=== PATIENT | female | born 1945 | race African-American/Black ===

== ENCOUNTER 2025-01-12 17:56 | Inpatient (IN) | payer OTHER ==
[~2025-01-12] VITALS: Ht 167.6 cm; Wt 102.0 kg
--- NOTE | 2025-01-12 18:14 | ECG ---
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
--- NOTE | 2025-01-12 18:30 | DVH ---
CHEST RADIOGRAPH Indication: sob Technique: Single frontal view of the chest was obtained Comparison: None FINDINGS: Lines and Tubes: None Lungs: No focal consolidation. Pleura: No effusion. No pneumothorax. Cardiomediastinal contours: Unremarkable Bones: No acute osseous abnormality. IMPRESSION: 1. No acute cardiopulmonary disease.
--- NOTE | 2025-01-12 18:37 | ED.PDOC ---
SOB-HPI HPI Comments HPI: Poor Historian. HPI: 79 year old female presents to the ED with chief complaint of SOB. Patient reports that she has been experiencing SOB for the past 2 months, worsened today enough for her to come to the ED. Patient relays that she also has been experiencing associated generalized weakness, off balance, fatigue, and p alpitations today. Patient states she was started on a new medication recently, but is not sure of the name. Patient denies any chest pain, fever, chills, cough, dizziness, headache, or N/V. Initial Vital Signs: Temp : 98.1F BP: 136/90 HR: 94 RR: 18 SpO2: 97% Past Medical History: HLD, DM, thyroid disease Past Surgical History: Thyroidectomy, Cholecystectomy, Hysterectomy Social History: Denies smoking, ETOH, or drug use. Medications: Glipizide, Atorvastatin, Levothyroxine, Lantus, Meloxicam Allergies: NKDA REVIEW OF SYSTEMS: CONSTITUTIONAL: Denies acute: fever, diaphoresis, chills, HEAD: Denies acute: headache, photophobia Eyes: Denies acute: Double vision, vision loss, eye pain, eye discharge. EARS: Denies acute: tinnitus, hearing loss, ear discharge, ear pain, THROAT: Denies acute: sore throat, swelling, difficulty swallowing , pain with swallowing, change in voice. NECK: Denies acute: neck pain, neck swelling, stiff neck. HEART: Denies acute : chest pain, LUNGS: Denies acute: wheezing, cough, hemoptysis ABDOMEN: Denies acute: abdominal pain, Nausea, Vomiting, diarrhea, melena , hematemesis, hematochezia SKIN: Denies acute: rash, redness, lesions, itchiness. EXTREMITIES: Denies acute: calf pain, numbness, tingling, weakness, denies pain in extremity. Denies acute: Low back pain. Neuro: Denies acute: focal neurological deficit, motor or sensory focal neurological deficit, tremors, seizure like activity, confusion, change in mental status, loss of bowel or bladder function, cauda equina like symptoms. : Denies acute: dysuria, hematuria, flank pain, increase in urinary frequency. PSYCH: Denies acute: hallucination, suicidal ideation, homicidal ideation. FEMALE: Denies acute: abnormal vaginal bleeding, foul odor, unusual discharge. PHYSICAL EXAM: General: no acute distress, awake and alert. Head: normocephalic, atraumatic. Neck: supple, trachea is midline, no swelling. Throat: Normal phonation. Eyes:, no erythema, no purulent discharge, no proptosis, no icterus. Heart: regular rate, regular rhythm, no significant murmur appreciated. Lungs: no apparent respiratory distress, Able to speak in full sentences. No wheezing, no rhonchi, no crackles. No stridors Clear to auscultation bilaterally. Abdomen: non tender to palpation, non distended, soft, no guarding, no rebound, + bowel sounds. Neuro: Awake, Alert, oriented to name, self, situation, follows commands GCS=15. Speech is normal. Skin: no petechia, no purpura, no cyanosis, non-pale, not jaundice. Lower extremities: --no - Pitting edema no deformity, no focal swelling, no calf TTP. Makes eye contact. moves all four extremities. Face: no apparent facial droop. ED COURSE: Chief Complaint: Shortness of Breath Time Seen by MD: 18:34 Primary Care Provider: ARAM Reviewed notes: Medications, Allergies Information Source: Patient Mode of Arrival: Ambulatory Was a procedure done? Was a procedure done?: No Differential Dx Differential Diagnosis: Other (DDx include ACS, unstable angina, anxiety, PE, pneumothroax, neoplasm, cardiac ischemia, COPD, asthma, CHF, pleural effusion, tobacco abuse, pneumonia, hypoxia, hypercapnia, anemia., infection/sepsis., pulmonary edema. Asthma, Cardiac tamponade, infection.) X-Ray, Labs, Meds, VS Vital Signs Date Time Temp Pulse Resp B/P (MAP) Pulse Ox O2 Delivery O2 Flow Rate FiO2 01/12/25 18:13 86 01/12/25 18:12 18 97 Room Air* 0 21 01/12/25 18:08 98.1 94 18 136/90 (105) 97 Lab Test 01/12/25 19:27 01/12/25 18:48 01/12/25 18:27 01/12/25 18:15 Range/Units Troponin I High Sensitivity Pending < 3 L </=34 ng/L Blood Gas Specimen Type Arterial Blood Gas Sample Site Right radial Blood Gas Patient Temperature 37.0 Arterial Blood Date Drawn [id number] Arterial Blood pH 7.486 H 7.350-7.450 Arterial Blood Partial Pressure CO2 36.2 32.0-45.0 mmHg Arterial Blood Partial Pressure O2 72.1 L 83.0-108.0 mmHg Arterial Blood HCO3 26.7 21.0-28.0 mmol/L Arterial Blood Oxygen Saturation 95.3 94.0-98.0 % Arterial Blood Base Excess 3.5 H -2.0-3.0 mmol/L Arterial Blood Oxyhemoglobin 94.1 94.0-98.0 % Arterial Blood Carboxyhemoglobin 0.9 0.5-1.5 % Arterial Blood Methemoglobin 0.4 0.0-1.5 % Jarvis Test Yes Blood Gas Total Hemoglobin 13.80 12.0-16.0 g/dL Blood Gas Modality Room air FiO2 % 21.0 White Blood Count 9.9 4.4-10.8 10^3/uL Red Blood Count 4.78 4.0-5.20 10^6/uL Hemoglobin 13.0 12.2-16.2 g/dL Hematocrit 40.2 36.0-46.0 % Mean Corpuscular Volume 84.1 80.0-100.0 fL Mean Corpuscular Hemoglobin 27.3 L 28.0-32.0 pg Mean Corpuscular Hemoglobin Concent 32.4 32.0-36.0 g/dL Red Cell Distribution Width 14.1 11.8-14.3 % Platelet Count 313 140-450 10^3/uL Mean Platelet Volume 9.4 6.9-10.8 fL Neutrophils (%) (Auto) 46.9 37.0-80.0 % Lymphocytes (%) (Auto) 43.5 10.0-50.0 % Monocytes (%) (Auto) 6.7 0.0-12.0 % Eosinophils (%) (Auto) 1.9 0.0-7.0 % Basophils (%) (Auto) 1.0 0.0-2.0 % Neutrophils # (Auto) 4.7 1.6-8.6 10 ^3/uL Lymphocytes # (Auto) 4.3 0.4-5.4 10 ^3/uL Monocytes # (Auto) 0.7 0-1.3 10 ^3/uL Eosinophils # (Auto) 0.2 0-0.8 10 ^3/uL Basophils # (Auto) 0.1 0-0.2 10 ^3/uL Nucleated Red Blood Cells 0.1 % D-Dimer, Quantitative 0.30 0.0-0.49 mg/L FEU Sodium Level 139 136-145 mmol/L Potassium Level 4.5 3.5-5.1 mmol/L Chloride Level 102 98-107 mmol/L Carbon Dioxide Level 29 20-31 mmol/L Anion Gap 8 5-15 Blood Urea Nitrogen 8 L 9-23 mg/dL Creatinine 0.93 0.550-1.02 mg/dL Glomerular Filtration Rate Calc 63 >90 mL/min BUN/Creatinine Ratio 8.6 L 10.0-20.0 Serum Glucose 208 H 74-106 mg/dL Lactic Acid Level 1.8 0.4-2.0 mmol/L Calcium Level 10.7 H 8.7-10.4 mg/dL Total Bilirubin 0.6 0.2-1.0 mg/dL Aspartate Amino Transferase (AST) 40 13-40 U/L Alanine Aminotransferase (ALT) 36 7-40 U/L Alkaline Phosphatase 70 46-116 U/L B-Type Natriuretic Peptide 12.24 0-100 pg/mL Total Protein 7.3 5.7-8.2 g/dL Albumin 4.9 H 3.2-4.8 g/dL POC Glucose 210 H 70-106 mg/dl [place] [address] Ph: [phone] DIAGNOSTIC IMAGING Diagnostic Imaging Report : [id number] Signed PATIENT: DIMITRY GHOTRA GACCT: [id number] UNIT: [id number] : 1945 LOC: ER ROOM / BED: / AGE / SEX: 79 / F ADM STATUS: REG ER SERVICE 05 ORDERING PHYSICIAN: TAMMI NUNO DO PROCEDURE(s): CXRP - CHEST PORTABLE REASON: sob ORDER NUMBER(s): [id number], ACCESSION NUMBER(s): [id number] CHEST RADIOGRAPH Indication: sob Technique: Single frontal view of the chest was obtained Comparison: None FINDINGS: Lines and Tubes: None Lungs: No focal consolidation. Pleura: No effusion. No pneumothorax. Cardiomediastinal contours: Unremarkable Bones: No acute osseous abnormality. IMPRESSION: 1. No acute cardiopulmonary disease. ATED BY: JAMIN CALDWELL Jr., DO DICTATED DATE/TIME: 01/12/251827 SIGNED BY: JAMIN CALDWELL Jr., SIGNED DATE/TIME: 01/12/251827 CC: Time of 1ST Reevaluation: 19:34 Reevaluation 1ST: Unchanged Patient Education/Counseling: Diagnosis, Treatment Family Education/Counseling: No Family Present Comments Patient presented with the above HPI.-dyspnea-----workup was initiated. patient was found with the above mentioned diagnosis. the following medications were ordered: please refer to order lists of meds and tests obtained by myself Dr. Nuno. Patient ED course and VS have been stabilized. Patient has been reassessed in the ED and remained in a stable condition. Pertinent incidental findings were discussed with the patient and/or family. Patient/family voices understanding and is agreeable with plan. Patient has been observed in the ED adequate length of time to insure improvement/stability. Escalation of care considered: Consideration of escalation to observation or admission Patient was ADMITTED to the medicine team for further evaluation and treatment of their presentation. All the reports of any imaging studies that were ordered by myself were reviewed by myself. Departure 1 Departure Time of Disposition: 19:54 Impression: Primary Impression: Dyspnea Additional Impression: Hypoxemia Disposition: ADMITTED INPATIENT Admit to: Tele Condition: Guarded Discharged With: Self Critical Care Note Critical Care Time?: No Heart Score Heart Score: Heart Score Response (Comments) Value History Slightly Suspicious 0 EKG Normal 0 Age >65 2 Risk Factors >3 or Hx ASHD 2 Troponin Normal limit 0 Total 4 I personally scribed for TAMMI NUNO DO ([email or web address]) on 01/12/25 at 18:37. Electronically submitted by Vinod Ornelas ([email or web address]). I personally scribed for TAMMI NUNO DO ([email or web address]) on 01/12/25 at 19:12. Electronically submitted by Vinod Ornelas ([email or web address]). TAMMI NUNO DO Jan 12, 2025 18:37
[2025-01-12 18:52] LABS: Base Excess 3.5 mmol/L (-2.0-3.0)
[2025-01-12 19:17] LABS: Basophils # (auto) 0.1 10 ^3/uL (0-0.2); Eosinophils # (auto) 0.2 10 ^3/uL (0-0.8); Lymphocytes # (auto) 4.3 10 ^3/uL (0.4-5.4); Nucleated Red Blood Cells % 0.1 %
[2025-01-12 19:19] LABS: Eosinophils % (auto) 1.9 % (0.0-7.0); Hematocrit 40.2 % (36.0-46.0); Lymphocytes % (auto) 43.5 % (10.0-50.0); Mean Corpuscular Hemoglobin 27.3 pg (28.0-32.0); Mean Corpuscular Hgb Conc. 32.4 g/dL (32.0-36.0); Mean Corpuscular Volume 84.1 fL (80.0-100.0); Monocytes # (auto) 0.7 10 ^3/uL (0-1.3); Monocytes % (auto) 6.7 % (0.0-12.0); Neutrophils # (auto) 4.7 10 ^3/uL (1.6-8.6); Neutrophils % (auto) 46.9 % (37.0-80.0); Platelet Count (auto) 313 10^3/uL (140-450); Red Blood Cells 4.78 10^6/uL (4.0-5.20); Red Cell Distribution Width 14.1 % (11.8-14.3); White Blood Cell 9.9 10^3/uL (4.4-10.8)
[2025-01-12 19:27] LABS: Alanine Aminotransferase 36 U/L (7-40); Alkaline Phosphatase 70 U/L (46-116); Anion Gap 8 (5-15); Aspartate Aminotransferase 40 U/L (13-40); BUN/Creatinine Ratio 8.6 (10.0-20.0); Carbon Dioxide 29 mmol/L (20-31); Chloride 102 mmol/L (98-107); Potassium 4.5 mmol/L (3.5-5.1); Sodium 139 mmol/L (136-145)
[2025-01-12 19:28] LABS: Albumin 4.9 g/dL (3.2-4.8); Bilirubin, Total 0.6 mg/dL (0.2-1.0); Blood Urea Nitrogen 8 mg/dL (9-23); Calcium 10.7 mg/dL (8.7-10.4); Glucose 208 mg/dL (74-106); Total Protein 7.3 g/dL (5.7-8.2)
[2025-01-12 20:23] VITALS: O2SAT 96
[2025-01-12] MEDS: IPRATROPIUM BROM 0.5 MG/2.5ML INH SOL ONE (20:25)
[2025-01-12] MEDS: IPRATROPIUM BROM 0.5 MG/2.5ML INH SOL NEB ONE (20:25)
[2025-01-12] MEDS: ALBUTEROL SULF 2.5 MG/0.5ML(0.5%) NEB SOLN NEB ONE (20:25)
[2025-01-12] MEDS: ALBUTEROL SULF 2.5 MG/0.5ML(0.5%) NEB SOLN ONE (20:26)
[2025-01-12] MEDS ORDERED: DEXTROSE (50%) 50ML SYRG IV PRN (20:45)
[2025-01-12] MEDS ORDERED: HYDROcodone-ACET 5/325MG TAB PO PRN (20:45)
[2025-01-12] MEDS ORDERED: DOCUSATE SOD 100 MG CAP PO PRN (20:45)
[2025-01-12] MEDS ORDERED: ONDANSETRON HCL 4 MG/2 ML VIAL IV PRN (20:45)
[2025-01-12 21:13] VITALS: BP 137/61; PULSE 87; RESP 18; O2SAT 96
[2025-01-12] MEDS ORDERED: MORPHINE SULFATE INJ 2 MG/ml SYRG IV PRN (21:15)
[2025-01-12] MEDS ORDERED: NITROGLYCERIN 0.4 MG SL TAB SL PRN (21:15)
--- NOTE | 2025-01-12 21:17 | DVHHP2 ---
History of Present Illness Reason for Visit: Acute respiratory distress History of Present Illness The patient is a 79-year-old female with past medical history of DM, thyroid disease, and hyperlipidemia who presented to [facility] ED with complaint of shortness of breaths. Patient reports she has been experience shortness of breaths for the past 2 months, associated generalized weakness, unsteady gait, fatigue, palpitations, getting worse today that prompted this visit. Patient was seen and evaluated in the ED, laboratory data shows WBC 9.9, platelets 313, sodium 139, potassium 4.5, BUN 8, creatinine 0.93, GFR 63, glucose 208, BNP 12.24, troponin three. Chest x-ray show no acute cardiopulm onary disease. Please see medication orders section in the computer. On my assessment, patient denied chest pain, no headache, no dizziness, currently on oxygen, no nausea, no vomiting, no fever, no chills. Patient was admitted for further evaluation and medical management. Past Medical History HLD, DM, thyroid disease Past Surgical History Thyroidectomy, Cholecystectomy, Hysterectomy Family History Reviewed, noncontributory to the management of this case. Past Social History The patient lives at home, denies smoking, alcohol or illicit drugs abuse. Review of Systems Constitutional: Yes: Weakness; No: Fever, Chills, Sweats, Malaise, Other Eyes: No: Pain, Vision change, Conjunctivae inflammation, Eyelid inflammation, Other, Redness ENT: No: Ear pain, Ear discharge, Nose pain, Nose discharge, Nose congestion, Mouth pain, Mouth swelling, Throat pain, Throat swelling, Other Respiratory: Shortness of breath, SOB with excertion; No: Cough, Dry, Wheezing, Hemoptysis, Pleuritic Pain, Sputum, Wheezing, Other Cardiovascular: No: Chest Pain, Palpitations, Orthopnea, Paroxysmal Noc. Dyspnea, Edema, Lt Headedness, Other Gastrointestinal: No: Nausea, Vomiting, Abdominal Pain, Diarrhea, Constipation, Melena, Hematochezia, Other Genitourinary: No Dysuria, No Frequency, No Incontinence, No Hematuria, No Retention, No Other Musculoskeletal: No: other, neck pain, shoulder pain, arm pain, back pain, hand pain, leg pain, foot pain Skin: No: Rash, Lesions, Jaundice, Bruising, Other Neurological: No: Weakness, Numbness, Incoordination, Change in speech, Confusion, Seizures, Other Allergies: Coded Allergies: Atorvastatin (Verified Allergy, Mild, fatigue, muscle aches, increased liver enzymes, 01/13/25) Medications Current Medications Medications Dose Ordered Sig/Corona Route Start Time Stop Time Status Last Admin Dose Admin Albuterol 2.5 mg Q4HPRN PRN NEB 01/12/25 20:45 Ipratropium [place] 0.5 mg Q4HPRN PRN NEB 01/12/25 20:45 Levothyroxine Sodium 75 mcg QAM@0600 PO 01/13/25 06:00 Atorvastatin Calcium 20 mg HS PO 01/12/25 22:00 Methylprednisolone Sodium Succinate 40 mg BID IV 01/12/25 22:00 Famotidine 20 mg Q12HR IV 01/12/25 22:00 Diagnostic Test (Pha) 1 strip ACHS 01/12/25 22:00 Insulin Human Regular HS SC 01/12/25 22:00 Insulin Human Regular AC SC 01/13/25 07:00 Dextrose 50 ml UD PRN IV 01/12/25 20:45 Sodium Chloride 1,000 ml @ 60 mls/hr [id number] IV 01/12/25 20:45 Acetaminophen/ Hydrocodone Bitart 1 tab Q4HP PRN PO 01/12/25 20:45 Ondansetron HCl 4 mg Q4HP PRN IV 01/12/25 20:45 Docusate Sodium 100 mg BIDPRN PRN PO 01/12/25 20:45 Acetaminophen 650 mg Q6HP PRN PO 01/12/25 20:45 Exam Vital Signs Vital Signs Date Time Temp Pulse Resp B/P (MAP) Pulse Ox O2 Delivery O2 Flow Rate FiO2 01/12/25 20:48 97.8 78 16 137/61 (86) 99 97.8 01/12/25 20:23 Room Air 0.0 01/12/25 20:23 21 General Appearance: Alert, Oriented X3, Cooperative, No acute distress HEENT: Atraumatic, PERRLA, EOMI, Mucous membr. moist/pink Respiratory: Clear to auscultation, Normal air movement Cardiovascular: Regular rate, Normal S1, Normal S2, No murmurs Abdominal: Normal bowel sounds, Soft, No tenderness, No hepatospenomegaly, No masses Extremities: No clubbing, No cyanosis, No edema, Normal pulses, No tenderness/swelling Skin: No rashes, No breakdown, No significant lesion Neuro: Normal speech, Normal tone, Sensation intact, Cranial nerves 3-12 NL, Reflexes 2+, Other (Generalized weakness) Psych/Mental Status: Mental status NL, Mood NL Labs/Xrays Labs Test 01/12/25 19:27 01/12/25 18:48 01/12/25 18:27 01/12/25 18:15 Range/Units Troponin I High Sensitivity < 3 L </=34 ng/L Thyroid Stimulating Hormone (TSH) 1.93 0.55-4.78 uIU/mL Blood Gas Specimen Type Arterial Blood Gas Sample Site Right radial Blood Gas Patient Temperature 37.0 Arterial Blood Date Drawn [id number] Arterial Blood pH 7.486 H 7.350-7.450 Arterial Blood Partial Pressure CO2 36.2 32.0-45.0 mmHg Arterial Blood Partial Pressure O2 72.1 L 83.0-108.0 mmHg Arterial Blood HCO3 26.7 21.0-28.0 mmol/L Arterial Blood Oxygen Saturation 95.3 94.0-98.0 % Arterial Blood Base Excess 3.5 H -2.0-3.0 mmol/L Arterial Blood Oxyhemoglobin 94.1 94.0-98.0 % Arterial Blood Carboxyhemoglobin 0.9 0.5-1.5 % Arterial Blood Methemoglobin 0.4 0.0-1.5 % Jarvis Test Yes Blood Gas Total Hemoglobin 13.80 12.0-16.0 g/dL Blood Gas Modality Room air FiO2 % 21.0 White Blood Count 9.9 4.4-10.8 10^3/uL Red Blood Count 4.78 4.0-5.20 10^6/uL Hemoglobin 13.0 12.2-16.2 g/dL Hematocrit 40.2 36.0-46.0 % Mean Corpuscular Volume 84.1 80.0-100.0 fL Mean Corpuscular Hemoglobin 27.3 L 28.0-32.0 pg Mean Corpuscular Hemoglobin Concent 32.4 32.0-36.0 g/dL Red Cell Distribution Width 14.1 11.8-14.3 % Platelet Count 313 140-450 10^3/uL Mean Platelet Volume 9.4 6.9-10.8 fL Neutrophils (%) (Auto) 46.9 37.0-80.0 % Lymphocytes (%) (Auto) 43.5 10.0-50.0 % Monocytes (%) (Auto) 6.7 0.0-12.0 % Eosinophils (%) (Auto) 1.9 0.0-7.0 % Basophils (%) (Auto) 1.0 0.0-2.0 % Neutrophils # (Auto) 4.7 1.6-8.6 10 ^3/uL Lymphocytes # (Auto) 4.3 0.4-5.4 10 ^3/uL Monocytes # (Auto) 0.7 0-1.3 10 ^3/uL Eosinophils # (Auto) 0.2 0-0.8 10 ^3/uL Basophils # (Auto) 0.1 0-0.2 10 ^3/uL Nucleated Red Blood Cells 0.1 % D-Dimer, Quantitative 0.30 0.0-0.49 mg/L FEU Sodium Level 139 136-145 mmol/L Potassium Level 4.5 3.5-5.1 mmol/L Chloride Level 102 98-107 mmol/L Carbon Dioxide Level 29 20-31 mmol/L Anion Gap 8 5-15 Blood Urea Nitrogen 8 L 9-23 mg/dL Creatinine 0.93 0.550-1.02 mg/dL Glomerular Filtration Rate Calc 63 >90 mL/min BUN/Creatinine Ratio 8.6 L 10.0-20.0 Serum Glucose 208 H 74-106 mg/dL Lactic Acid Level 1.8 0.4-2.0 mmol/L Calcium Level 10.7 H 8.7-10.4 mg/dL Total Bilirubin 0.6 0.2-1.0 mg/dL Aspartate Amino Transferase (AST) 40 13-40 U/L Alanine Aminotransferase (ALT) 36 7-40 U/L Alkaline Phosphatase 70 46-116 U/L B-Type Natriuretic Peptide 12.24 0-100 pg/mL Total Protein 7.3 5.7-8.2 g/dL Albumin 4.9 H 3.2-4.8 g/dL POC Glucose 210 H 70-106 mg/dl PATIENT: DIMITRY GHOTRA GACCT: [id number] UNIT: [id number] : 1945 LOC: ER ROOM / BED: / AGE / SEX: 79 / F ADM STATUS: REG ER SERVICE 05 ORDERING PHYSICIAN: TAMMI NUNO DO PROCEDURE(s): CXRP - CHEST PORTABLE REASON: sob ORDER NUMBER(s): [id number], ACCESSION NUMBER(s): [id number] CHEST RADIOGRAPH Indication: sob Technique: Single frontal view of the chest was obtained Comparison: None FINDINGS: Lines and Tubes: None Lungs: No focal consolidation. Pleura: No effusion. No pneumothorax. Cardiomediastinal contours: Unremarkable Bones: No acute osseous abnormality. IMPRESSION: 1. No acute cardiopulmonary disease. Assessment/Plan Assessment/Plan Dyspnea Hypoxemia Generalized weakness Acute respiratory distress Plan 1. Admit to telemetry unit 2. Breathing treatment 3. Pain control management 4. Management of fluids and electrolytes 5. Consultation for pulmonology 6. Diagnostic tests chest x-ray 7. DVT prophylaxis-on SCDs 8. Repeat labs CBC, CMP in a.m. 9. Continue with current medical management 10. Treatment plan discussed with patient and RN. Patient verbalized understanding. Plan discussed with: Patient, Other (RN) My Orders Orders - TINO SUERO DNP Procedure Category Date Status Time Consistent DIET 01/13/25 Transmitted Carb(Ccho)Diabetes Breakfast Albuterol Medneb PHA 01/12/25 In Process (Ventolin Medneb) 20:45 Ipratropium Medneb PHA 01/12/25 In Process (Atrovent Medneb) 20:45 Levothyroxine Tablet PHA 01/13/25 In Process (Synthroid Tablet) 06:00 Atorvastatin (Lipitor) PHA 01/12/25 In Process 22:00 Methylprednisolone PHA 01/12/25 In Process Sod Succ (Solu Medrol 22:00 Famotidine Injection PHA 01/12/25 In Process (Pepcid Injection) 22:00 Glucose Blood PHA 01/12/25 In Process (Accu-Chek Comfort 22:00 Insulin R (Human) PHA 01/12/25 In Process (Insulin R) 22:00 Insulin R (Human) PHA 01/13/25 In Process (Insulin R) 07:00 Dextrose 50% Syringe PHA 01/12/25 In Process 20:45 Allergies [place] 01/12/25 In Process 20:34 Code Status CODE 01/12/25 Transmitted 20:34 Sodium Chloride 0.9% PHA 2/22/25 In Process 20:45 Oxygen Per Hour RT 01/12/25 Transmitted 20:34 Hydrocodone-Acet PHA 01/12/25 In Process 5/325mg Tab ([place] 20:45 Ondansetron Hcl PHA 01/12/25 In Process (Zofran) 20:45 Docusate Sodium PHA 01/12/25 In Process Capsule (Colace 20:45 Complete Blood Count LAB 01/13/25 Verified 04:00 Comprehensive LAB 01/13/25 Verified Metabolic Panel 04:00 Condition: Serious [place] 01/12/25 In Process 20:34 Acetaminophen Tablet PHA 01/12/25 In Process (Tylenol Tablet) 20:45 Bedrest With Bathroom [place] 01/12/25 In Process Privileg 20:34 Sequential [place] 01/12/25 In Process Compression Device Problem List: (1) Dyspnea (2) Hypoxemia (3) Generalized weakness (4) Acute respiratory distress Date of Service: Jan 12, 2025 Billing Provider: TINO SUERO DNP Common Visit Codes: [id number] INP/OBS CARE (HIGH) TINO SUERO DNP Jan 12, 2025 21:17
--- NOTE | 2025-01-12 22:06 | DVHINCON2 ---
Date of service: Jan 12, 2025 Referring Physician Espinoza Bonner NP Reason for Consultation Acute respiratory distress History of Present Illness 79-year-old woman with past medical history of DM, thyroid disease, and hyperlipidemia who presents to ED today with complaint of shortness of breath. Patient reports ongoing shortness of breath for the past 2 months, associated generalized weakness, unsteady gait, fatigue, palpitations, getting worse today that prompted this visit. ED workup shows WBC 9.9, platelets 313, sodium 139, potassium 4.5, BUN 8, creatinine 0.93, GFR 63, glucose 208, BNP 12.24, troponin 3. Chest x-ray showed no acute cardiopulmonary disease. Patient was admitted for further care and pulmonary consultation is requested for evaluation and management of acute respiratory distress. Review of Systems: 14-point review of systems negative unless otherwise noted above. Past Medical History: HLD, DM, thyroid disease Past Surgical History: Thyroidectomy, Cholecystectomy, Hysterectomy Medications: Reviewed. Allergies: Atorvastatin. Family History: No family history of premature CAD. No family history of lung disorders. Social History: Nonsmoker. No alcohol or illicit drug use. Allergies: Coded Allergies: Atorvastatin (Verified Allergy, Mild, fatigue, muscle aches, increased liver enzymes, 01/13/25) Home Meds Reported Medications Cetirizine Hcl (Kls Aller-Vasquez) 10 Mg Tab, 10 MG PO DAILY, TAB 01/13/25 Current Medications Current Medications Medications (Trade) Dose Ordered Sig/Corona Route PRN Reason Start Time Stop Time Status Last Admin Albuterol (Ventolin Medneb) 2.5 mg Q4HPRN PRN NEB SHORTNESS OF BREATH 01/12/25 20:45 Ipratropium Wilder (Atrovent Medneb) 0.5 mg Q4HPRN PRN NEB SHORTNESS OF BREATH 01/12/25 20:45 Levothyroxine Sodium (Synthroid Tablet) 75 mcg QAM@0600 PO 01/13/25 06:00 Atorvastatin Calcium (Lipitor) 20 mg HS PO 01/12/25 22:00 Methylprednisolone Sodium Succinate (Solu Medrol) 40 mg BID IV 01/12/25 22:00 Famotidine (Pepcid Injection) 20 mg Q12HR IV 01/12/25 22:00 Diagnostic Test (Pha) (Accu-Chek Comfort Curve T) 1 strip ACHS 01/12/25 22:00 Insulin Human Regular (InsuLIN R) HS SC 01/12/25 22:00 Insulin Human Regular (InsuLIN R) AC SC 01/13/25 07:00 Dextrose 50 ml UD PRN IV Blood Sugar LESS THAN 60 01/12/25 20:45 Sodium Chloride 1,000 ml @ 60 mls/hr [id number] IV 01/12/25 20:45 Acetaminophen/ Hydrocodone Bitart ([place] 5/325MG Tab) 1 tab Q4HP PRN PO MODERATE PAIN (4-6 PAIN SCALE) 01/12/25 20:45 Ondansetron HCl (Zofran) 4 mg Q4HP PRN IV NAUSEA / VOMITING 01/12/25 20:45 Docusate Sodium (Colace Capsule) 100 mg BIDPRN PRN PO FOR CONSTIPATION 01/12/25 20:45 Acetaminophen (Tylenol Tablet) 650 mg Q6HP PRN PO PAIN SCALE 1-3 OR TEMP>100.4 01/12/25 20:45 Nitroglycerin (Ntrostat Sublingual) 0.4 mg Q5MINP PRN SL FOR CHEST PAIN 01/12/25 21:15 Morphine Sulfate 2 mg Q30M PRN IV FOR CHEST PAIN 01/12/25 21:15 Vital Signs Vital Signs Date Time Temp Pulse Resp B/P (MAP) Pulse Ox O2 Delivery O2 Flow Rate FiO2 01/12/25 21:13 87 18 137/61 96 0.0 21 01/12/25 20:48 97.8 97.8 01/12/25 20:23 Room Air Physical Exam Gen.: Patient lying in bed in no apparent distress. On supplemental oxygen. Head: Normocephalic, atraumatic. Eyes: EOMI/PERRLA. Ears: Normal hearing. Normal anatomy. Neck/trachea: Trachea midline, supple. Nose: Normal external anatomy. Mouth: Moist mucous membranes. Chest: Decreased air entry bilaterally. No wheezing or rhonchi. Cardiovascular: Positive S1, positive S2. Regular rate and rhythm. Abdomen: Positive bowel sounds in all 4 quadrants. Soft, non-tender, non- distended. : Deferred. Rectal: Deferred. Skin: Warm, dry. Intact. Extremities: 2+ radial pulses bilaterally. No lower extremity edema. Neuro: Awake, alert, oriented x3. No gross motor or sensory deficits. Cranial nerves II through XII intact. Gait not assessed. Labs/Diagnostic Data Labs Test 01/12/25 19:27 01/12/25 18:48 01/12/25 18:27 01/12/25 18:15 Range/Units Troponin I High Sensitivity < 3 L </=34 ng/L Thyroid Stimulating Hormone (TSH) 1.93 0.55-4.78 uIU/mL Blood Gas Specimen Type Arterial Blood Gas Sample Site Right radial Blood Gas Patient Temperature 37.0 Arterial Blood Date Drawn [id number] Arterial Blood pH 7.486 H 7.350-7.450 Arterial Blood Partial Pressure CO2 36.2 32.0-45.0 mmHg Arterial Blood Partial Pressure O2 72.1 L 83.0-108.0 mmHg Arterial Blood HCO3 26.7 21.0-28.0 mmol/L Arterial Blood Oxygen Saturation 95.3 94.0-98.0 % Arterial Blood Base Excess 3.5 H -2.0-3.0 mmol/L Arterial Blood Oxyhemoglobin 94.1 94.0-98.0 % Arterial Blood Carboxyhemoglobin 0.9 0.5-1.5 % Arterial Blood Methemoglobin 0.4 0.0-1.5 % Jarvis Test Yes Blood Gas Total Hemoglobin 13.80 12.0-16.0 g/dL Blood Gas Modality Room air FiO2 % 21.0 White Blood Count 9.9 4.4-10.8 10^3/uL Red Blood Count 4.78 4.0-5.20 10^6/uL Hemoglobin 13.0 12.2-16.2 g/dL Hematocrit 40.2 36.0-46.0 % Mean Corpuscular Volume 84.1 80.0-100.0 fL Mean Corpuscular Hemoglobin 27.3 L 28.0-32.0 pg Mean Corpuscular Hemoglobin Concent 32.4 32.0-36.0 g/dL Red Cell Distribution Width 14.1 11.8-14.3 % Platelet Count 313 140-450 10^3/uL Mean Platelet Volume 9.4 6.9-10.8 fL Neutrophils (%) (Auto) 46.9 37.0-80.0 % Lymphocytes (%) (Auto) 43.5 10.0-50.0 % Monocytes (%) (Auto) 6.7 0.0-12.0 % Eosinophils (%) (Auto) 1.9 0.0-7.0 % Basophils (%) (Auto) 1.0 0.0-2.0 % Neutrophils # (Auto) 4.7 1.6-8.6 10 ^3/uL Lymphocytes # (Auto) 4.3 0.4-5.4 10 ^3/uL Monocytes # (Auto) 0.7 0-1.3 10 ^3/uL Eosinophils # (Auto) 0.2 0-0.8 10 ^3/uL Basophils # (Auto) 0.1 0-0.2 10 ^3/uL Nucleated Red Blood Cells 0.1 % D-Dimer, Quantitative 0.30 0.0-0.49 mg/L FEU Sodium Level 139 136-145 mmol/L Potassium Level 4.5 3.5-5.1 mmol/L Chloride Level 102 98-107 mmol/L Carbon Dioxide Level 29 20-31 mmol/L Anion Gap 8 5-15 Blood Urea Nitrogen 8 L 9-23 mg/dL Creatinine 0.93 0.550-1.02 mg/dL Glomerular Filtration Rate Calc 63 >90 mL/min BUN/Creatinine Ratio 8.6 L 10.0-20.0 Serum Glucose 208 H 74-106 mg/dL Lactic Acid Level 1.8 0.4-2.0 mmol/L Calcium Level 10.7 H 8.7-10.4 mg/dL Total Bilirubin 0.6 0.2-1.0 mg/dL Aspartate Amino Transferase (AST) 40 13-40 U/L Alanine Aminotransferase (ALT) 36 7-40 U/L Alkaline Phosphatase 70 46-116 U/L B-Type Natriuretic Peptide 12.24 0-100 pg/mL Total Protein 7.3 5.7-8.2 g/dL Albumin 4.9 H 3.2-4.8 g/dL POC Glucose 210 H 70-106 mg/dl Assessment Impression: Acute hypoxic respiratory failure Dyspnea Generalized weakness Acute respiratory distress AE COPD Obesity BMI 36.4 Plan: Supplemental oxygen Titrate to keep O2 sats above 92%. CXR reviewed, demonstrates no acute opacities. No pleural effusion or pneumothorax. Respiratory viral panel negative. Follow up Echo Continue bronchodilators. Continue antibiotics IV steroids Pain control Avoid oversedation Accu-Cheks, ISS. Monitor renal function. Monitor electrolytes. Supplement as necessary. Monitor ins and outs. DVT prophylaxis. Prognosis: Poor given patient's multiple co-morbidities. Rest of plan per hospitalist and other consultants. Thank you, SUN Bonner, for allowing me to participate in this patient's care. Further recommendations will depend on the patient's clinical course. Please do not hesitate to contact me if you have any questions or concerns. This medical document was created using an electronic medical record system with [employer] dictation system. Although these documentations are being carefully reviewed, there may still be some phonetic and typographical changes. The errors are purely typographical, due to imperfection on the software program, and do not reflect any compromise in the patient's medical care. Plan discussed with: Patient, Other (RICHA Norman/SUN Bonner/) ADA RAYMOND MD Jan 12, 2025 22:06
[2025-01-12] MEDS: ACCU-CHEK COMFORT CURVE STRIP VI SCH (23:58)
[2025-01-13] VITALS (11 sets, daily range): BP systolic 102–152; BP diastolic 51–75; PULSE 64–114; RESP 14–20; TEMP 97.3–97.9; O2SAT 92–99
[2025-01-13] MEDS: InsuLIN REG 1unit/0.01ml Soln (100units/ml) SC SCH ×2 (00:05→05:45)
[2025-01-13] MEDS: ATORVASTATIN 20 MG TAB PO SCH (00:08)
[2025-01-13] MEDS: methylPREDNISolone SOD SUCC 125 MG/2 ML VL IV ONE (01:45)
[2025-01-13] MEDS: methylPREDNISolone SOD SUCC 40 MG/ML VL IV SCH (01:45)
[2025-01-13] MEDS: FAMOTIDINE (10MG/ML) 2ML VL IV SCH (01:45)
[2025-01-13] MEDS: SODIUM CHLORIDE 0.9% 1,000 ML IV SCH (01:47)
[2025-01-13] MEDS: ACETAMINOPHEN 325 MG TAB PO PRN (02:23)
[2025-01-13 04:07] LABS: Basophils # (auto) 0.1 10 ^3/uL (0-0.2); Basophils % (auto) 0.9 % (0.0-2.0); Eosinophils # (auto) 0.1 10 ^3/uL (0-0.8); Eosinophils % (auto) 1.3 % (0.0-7.0); Hematocrit 39.8 % (36.0-46.0); Hemoglobin 12.5 g/dL (12.2-16.2); Lymphocytes # (auto) 1.8 10 ^3/uL (0.4-5.4); Lymphocytes % (auto) 21.5 % (10.0-50.0); Mean Corpuscular Hemoglobin 26.5 pg (28.0-32.0); Mean Corpuscular Hgb Conc. 31.4 g/dL (32.0-36.0); Mean Corpuscular Volume 84.3 fL (80.0-100.0); Monocytes # (auto) 0.3 10 ^3/uL (0-1.3); Neutrophils # (auto) 6.3 10 ^3/uL (1.6-8.6); Neutrophils % (auto) 73.3 % (37.0-80.0); Nucleated Red Blood Cells % 0.1 %; Platelet Count (auto) 296 10^3/uL (140-450); Red Blood Cells 4.72 10^6/uL (4.0-5.20); Red Cell Distribution Width 14.7 % (11.8-14.3); White Blood Cell 8.5 10^3/uL (4.4-10.8)
[2025-01-13 04:40] LABS: Alanine Aminotransferase 29 U/L (7-40); Alkaline Phosphatase 63 U/L (46-116); Anion Gap 9 (5-15); BUN/Creatinine Ratio 7.7 (10.0-20.0); Calcium 10.2 mg/dL (8.7-10.4); Carbon Dioxide 27 mmol/L (20-31); Chloride 104 mmol/L (98-107); Potassium 4.2 mmol/L (3.5-5.1); Sodium 140 mmol/L (136-145)
[2025-01-13 04:41] LABS: Albumin 4.4 g/dL (3.2-4.8); Aspartate Aminotransferase 30 U/L (13-40); Bilirubin, Total 0.4 mg/dL (0.2-1.0)
[2025-01-13 04:48] LABS: Blood Urea Nitrogen 8 mg/dL (9-23); Glucose 287 mg/dL (74-106)
[2025-01-13] MEDS: LEVOTHYROXINE SODIUM 25 MCG TAB PO SCH (05:06)
--- NOTE | 2025-01-13 14:05 | DVHINCON2 ---
Date Seen: Jan 13, 2025 Referring Physician Arnulfo Reason for Consultation SOB History of Present Illness 79-year-old female with PMH for diabetes, thyroid disease, HLD, neuropathy, presents to the hospital with shortness of breath. Patient states that for the last 2 to almost 3 months patient has noticed that she has been feeling more short of breath and feels it is worsened with any type of exertion even just going to the grocery store. Denies chest pain, palpitations. Patient denies any history of cardiac workup with stress test, angiogram. Denies taking any medications for her heart and no blood pressure medication, aspirin. Patient's blood pressure noted to be in the 140s to 150 systolic. Patient notes that at times she checks her blood pressure but it is never over 200 systolic though does not remember what it is usually. Patient feels and symptoms progressed when she was started on her steroids and cholesterol medication. Upon evaluation in the ER patient was negative troponins, negative BNP, CXR with no acute cardiopulmonary disease. Past Medical History As above. Past Surgical History No previous cardiac surgeries. Family History: Alcoholism Cerebrovascular accident (CVA) G8 MOTHER Diabetes mellitus G8 MOTHER G8 SISTER G8 SISTER FH: myocardial infarction G8 MOTHER G8 SISTER G8 SISTER Social History Denies alcohol, or illicit drug use. Patient has 40 year history of 1 pack a day smoker for which she quit roughly 15 years prior. Allergies: Coded Allergies: Atorvastatin (Verified Allergy, Mild, fatigue, muscle aches, increased liver enzymes, 01/13/25) Current Medications Current Medications Medications (Trade) Dose Ordered Sig/Corona Route PRN Reason Start Time Stop Time Status Last Admin Albuterol (Ventolin Medneb) 2.5 mg Q4HPRN PRN NEB SHORTNESS OF BREATH 01/12/25 20:45 Ipratropium Henderson (Atrovent Medneb) 0.5 mg Q4HPRN PRN NEB SHORTNESS OF BREATH 01/12/25 20:45 Levothyroxine Sodium (Synthroid Tablet) 75 mcg QAM@0600 PO 01/13/25 06:00 01/13/25 05:06 Atorvastatin Calcium (Lipitor) 20 mg HS PO 01/12/25 22:00 01/13/25 00:42 DC Methylprednisolone Sodium Succinate (Solu Medrol) 40 mg BID IV 01/12/25 22:00 01/13/25 11:39 Famotidine (Pepcid Injection) 20 mg Q12HR IV 01/12/25 22:00 01/13/25 11:39 Diagnostic Test (Pha) (Accu-Chek Comfort Curve T) 1 strip ACHS 01/12/25 22:00 01/13/25 11:37 Insulin Human Regular (InsuLIN R) HS SC 01/12/25 22:00 01/13/25 00:05 Insulin Human Regular (InsuLIN R) AC SC 01/13/25 07:00 01/13/25 11:38 Dextrose 50 ml UD PRN IV Blood Sugar LESS THAN 60 01/12/25 20:45 Sodium Chloride 1,000 ml @ 60 mls/hr [id number] IV 01/12/25 20:45 01/13/25 05:09 Acetaminophen/ Hydrocodone Bitart ([place] 5/325MG Tab) 1 tab Q4HP PRN PO MODERATE PAIN (4-6 PAIN SCALE) 01/12/25 20:45 Ondansetron HCl (Zofran) 4 mg Q4HP PRN IV NAUSEA / VOMITING 01/12/25 20:45 Docusate Sodium (Colace Capsule) 100 mg BIDPRN PRN PO FOR CONSTIPATION 01/12/25 20:45 Acetaminophen (Tylenol Tablet) 650 mg Q6HP PRN PO PAIN SCALE 1-3 OR TEMP>100.4 01/12/25 20:45 01/13/25 02:23 Nitroglycerin (Ntrostat Sublingual) 0.4 mg Q5MINP PRN SL FOR CHEST PAIN 01/12/25 21:15 Morphine Sulfate 2 mg Q30M PRN IV FOR CHEST PAIN 01/12/25 21:15 Ceftriaxone Sodium 50 ml @ 100 mls/hr DAILY@09 IV 01/14/25 09:00 Review of Systems Constitutional: No: Fever, Chills, Sweats, Weakness, Malaise, Other Eyes: No: Pain, Vision change, Conjunctivae inflammation, Eyelid inflammation, Other, Redness ENT: No: Ear pain, Ear discharge, Nose pain, Nose discharge, Nose congestion, Mouth pain, Mouth swelling, Throat pain, Throat swelling, Other Respiratory: No: Cough, Dry, Wheezing, Hemoptysis, Pleuritic Pain, Sputum, Wheezing, Other positive: Shortness of breath, SOB with exertion, Cardiovascular: ; No: Chest Pain Palpitations, Orthopnea, Paroxysmal Noc. Dyspnea, Edema, Lt Headedness, Other Gastrointestinal: No: Nausea, Vomiting, Abdominal Pain, Diarrhea, Constipation, Melena, Hematochezia, Other Genitourinary: No Dysuria, No Frequency, No Incontinence, No Hematuria, No Retention, No Other Musculoskeletal: neck pain; No: other, shoulder pain, arm pain, back pain, hand pain, leg pain, foot pain Skin: No: Rash, Lesions, Jaundice, Bruising, Other Neurological: Other (Dizziness, headache.); No: Weakness, Numbness, Incoordination, Change in speech, Confusion, Seizures Vital Signs Vital Signs Date Time Temp Pulse Resp B/P (MAP) Pulse Ox O2 Delivery O2 Flow Rate FiO2 01/13/25 13:00 97.3 89 16 129/66 (87) 94 97.3 01/13/25 10:00 Room Air* 0 21 Physical Exam General appearance: Patient is well-developed, well-nourished, in no acute distress. HEENT: Exam shows: Normocephalic, atraumatic, PERRLA, EOMI Neck: Supple, no bruits Chest: Equal chest excursion bilaterally. Breath sounds normal-no rales or wheezes. Heart: Rhythm: Regular rate; no murmur or gallop Abdomen: Exam shows: Soft, nontender, nondistended Musculoskeletal: No clubbing, no cyanosis, no lower extremity edema Dermatology: Skin warm, moist. Neurological: Exam shows: Alert and oriented x4, normal speech Available prior records, labs, EKG, rhythm strips reviewed and interpreted Labs/Diagnostic Data Labs Test 01/13/25 11:24 01/13/25 03:31 01/12/25 19:27 01/12/25 18:48 Range/Units POC Glucose 357 H 70-106 mg/dl White Blood Count 8.5 4.4-10.8 10^3/uL Red Blood Count 4.72 4.0-5.20 10^6/uL Hemoglobin 12.5 12.2-16.2 g/dL Hematocrit 39.8 36.0-46.0 % Mean Corpuscular Volume 84.3 80.0-100.0 fL Mean Corpuscular Hemoglobin 26.5 L 28.0-32.0 pg Mean Corpuscular Hemoglobin Concent 31.4 L 32.0-36.0 g/dL Red Cell Distribution Width 14.7 H 11.8-14.3 % Platelet Count 296 140-450 10^3/uL Mean Platelet Volume 9.3 6.9-10.8 fL Neutrophils (%) (Auto) 73.3 37.0-80.0 % Lymphocytes (%) (Auto) 21.5 10.0-50.0 % Monocytes (%) (Auto) 3.0 0.0-12.0 % Eosinophils (%) (Auto) 1.3 0.0-7.0 % Basophils (%) (Auto) 0.9 0.0-2.0 % Neutrophils # (Auto) 6.3 1.6-8.6 10 ^3/uL Lymphocytes # (Auto) 1.8 0.4-5.4 10 ^3/uL Monocytes # (Auto) 0.3 0-1.3 10 ^3/uL Eosinophils # (Auto) 0.1 0-0.8 10 ^3/uL Basophils # (Auto) 0.1 0-0.2 10 ^3/uL Nucleated Red Blood Cells 0.1 % Sodium Level 140 136-145 mmol/L Potassium Level 4.2 3.5-5.1 mmol/L Chloride Level 104 98-107 mmol/L Carbon Dioxide Level 27 20-31 mmol/L Anion Gap 9 5-15 Blood Urea Nitrogen 8 L 9-23 mg/dL Creatinine 1.04 H 0.550-1.02 mg/dL Glomerular Filtration Rate Calc 55 >90 mL/min BUN/Creatinine Ratio 7.7 L 10.0-20.0 Serum Glucose 287 H 74-106 mg/dL Calcium Level 10.2 8.7-10.4 mg/dL Total Bilirubin 0.4 0.2-1.0 mg/dL Aspartate Amino Transferase (AST) 30 13-40 U/L Alanine Aminotransferase (ALT) 29 7-40 U/L Alkaline Phosphatase 63 46-116 U/L Total Protein 7.0 5.7-8.2 g/dL Albumin 4.4 3.2-4.8 g/dL Troponin I High Sensitivity < 3 L </=34 ng/L Thyroid Stimulating Hormone (TSH) 1.93 0.55-4.78 uIU/mL Blood Gas Specimen Type Arterial Blood Gas Sample Site Right radial Blood Gas Patient Temperature 37.0 Arterial Blood Date Drawn [id number] Arterial Blood pH 7.486 H 7.350-7.450 Arterial Blood Partial Pressure CO2 36.2 32.0-45.0 mmHg Arterial Blood Partial Pressure O2 72.1 L 83.0-108.0 mmHg Arterial Blood HCO3 26.7 21.0-28.0 mmol/L Arterial Blood Oxygen Saturation 95.3 94.0-98.0 % Arterial Blood Base Excess 3.5 H -2.0-3.0 mmol/L Arterial Blood Oxyhemoglobin 94.1 94.0-98.0 % Arterial Blood Carboxyhemoglobin 0.9 0.5-1.5 % Arterial Blood Methemoglobin 0.4 0.0-1.5 % Jarvis Test Yes Blood Gas Total Hemoglobin 13.80 12.0-16.0 g/dL Blood Gas Modality Room air FiO2 % 21.0 Test 01/12/25 18:27 Range/Units D-Dimer, Quantitative 0.30 0.0-0.49 mg/L FEU Lactic Acid Level 1.8 0.4-2.0 mmol/L B-Type Natriuretic Peptide 12.24 0-100 pg/mL Assessment Acute respiratory distress HTN Hypothyroidism HLD DM Plan/Recommendation * Seems euvolemic. No evidence of fluid overload. Follow up ECHO. * On RA, on bronchodilators and steroids. Pulmonology onboard * BP trending on higher side, may need to initiate on BP medication * TSH normal. * Continue statin Case Discussed with Dr Sharp. Follow up echo, if no significant abnormality then there is no further cardiac work-up indicated at this time. Thank you for allowing us to participate in this patient's care. Critical care, time spent: 37 minutes This medical document was created using an electronic medical record system with voice recognition software and computerized dictation system. Although this document has been carefully reviewed, there might still be some phonetic and typographical errors. Occasional wrong-word or ``sound-alike substitutions may have occurred due to the inherent limitations of voice recognition software. These areas are purely typographical due to imperfections of the software programs and do not reflect any compromise in the patient's medical care. Please read the chart carefully and recognize, using context, where these substitutions have occurred. Thank you for allowing me to participate in the management of this patient. The treatment plan was discussed with and agreed upon by patient/family including requesting consultants and ordering of imaging/procedures. Plan discussed with: Patient NYHA Physical activity limitations: NA Date of Service: Jan 13, 2025 Billing Provider: SHALINI SHEFFIELD Cardiology Common Codes: [id number] INP/OBS CARE (High), [id number] CARE 30-74 MIN SHALINI SHEFFIELD Jan 13, 2025 14:04
[2025-01-13] MEDS: cefTRIAXone 1GM/50ML D5W 50 ML IV ONE (15:39)
[2025-01-13] MEDS ORDERED: CETI10TA2 PO (15:48)
[2025-01-13 17:18] LABS: Urine Bacteria None Seen /hpf (None Seen)
[2025-01-13 17:26] LABS: Rapid Influenza A Negative (Negative); Rapid Influenza B Negative (Negative)
[2025-01-13 17:27] LABS: COVID19 ANTIGEN SOFIA FIA NEGATIVE (NEGATIVE)
[2025-01-13 17:30] LABS: Urine Blood Negative /uL (Negative); Urine Clarity Clear (Clear); Urine Color Light-Yellow (Yellow); Urine Protein, UAD Negative (Negative); Urine Specific Gravity 1.031 (1.001-1.035); Urine Squamous Epithelial Cell FEW /hpf (<5); Urine Urobilinogen Normal (Negative); Urine WBC 4 /HPF (0-5)
[2025-01-13] MEDS: LORATADINE 10 MG TAB PO ONE (19:43)
--- NOTE | 2025-01-13 22:38 | DVHPN2 ---
Progress Note - Dictate Date Seen: Jan 13, 2025 Medical Necessity Reason Pt with a Central, PICC or Fol: No Subjective Patient seen and examined at bedside. Currently breathing on room air Overnight events reviewed. vital signs Vital Sign Date Time Temp Pulse Resp B/P (MAP) Pulse Ox O2 Delivery O2 Flow Rate FiO2 01/13/25 21:00 97.7 89 14 102/51 (68) 93 97.7 01/13/25 10:00 Room Air* 0 21 Total Intake and Output 01/12/25 01/12/25 01/13/25 15:00 23:00 07:00 Intake Total 120 ml Balance 120 ml medications Current Medications Medications Dose Ordered Sig/Corona Route Start Time Stop Time Status Last Admin Dose Admin Albuterol 2.5 mg Q4HPRN PRN NEB 01/12/25 20:45 Ipratropium Aladdin 0.5 mg Q4HPRN PRN NEB 01/12/25 20:45 Levothyroxine Sodium 75 mcg QAM@0600 PO 01/13/25 06:00 01/13/25 05:06 75 MCG Methylprednisolone Sodium Succinate 40 mg BID IV 01/12/25 22:00 01/13/25 22:02 40 MG Famotidine 20 mg Q12HR IV 01/12/25 22:00 01/13/25 22:02 20 MG Diagnostic Test (Pha) 1 strip ACHS 01/12/25 22:00 01/13/25 22:15 1 STRIP Insulin Human Regular HS SC 01/12/25 22:00 01/13/25 22:18 8 UNITS Insulin Human Regular AC SC 01/13/25 07:00 01/13/25 17:00 12 UNITS Dextrose 50 ml UD PRN IV 01/12/25 20:45 Sodium Chloride 1,000 ml @ 60 mls/hr [id number] IV 01/12/25 20:45 01/13/25 05:09 60 MLS/HR Acetaminophen/ Hydrocodone Bitart 1 tab Q4HP PRN PO 01/12/25 20:45 Ondansetron HCl 4 mg Q4HP PRN IV 01/12/25 20:45 Docusate Sodium 100 mg BIDPRN PRN PO 01/12/25 20:45 Acetaminophen 650 mg Q6HP PRN PO 01/12/25 20:45 01/13/25 19:42 650 MG Nitroglycerin 0.4 mg Q5MINP PRN SL 01/12/25 21:15 Morphine Sulfate 2 mg Q30M PRN IV 01/12/25 21:15 Ceftriaxone Sodium 50 ml @ 100 mls/hr DAILY@09 IV 01/14/25 09:00 objective Gen.: Patient lying in bed in no apparent distress. On room air. Head: Normocephalic, atraumatic. Eyes: EOMI/PERRLA. Ears: Normal hearing. Normal anatomy. Neck/trachea: Trachea midline, supple. Nose: Normal external anatomy. Mouth: Moist mucous membranes. Chest: Decreased air entry bilaterally. No wheezing or rhonchi. Cardiovascular: Positive S1, positive S2. Regular rate and rhythm. Abdomen: Positive bowel sounds in all 4 quadrants. Soft, non-tender, non- distended. : Deferred. Rectal: Deferred. Skin: Warm, dry. Intact. Extremities: 2+ radial pulses bilaterally. No lower extremity edema. Neuro: Awake, alert, oriented x3. No gross motor or sensory deficits. Cranial nerves II through XII intact. Gait not assessed. laboratory and microbiology Laboratory Tests 01/13/25 03:31 Test 01/13/25 03:31 Range/Units Serum Glucose 287 H 74-106 mg/dL Assessment/Plan Impression: Acute hypoxic respiratory failure Dyspnea Generalized weakness Acute respiratory distress AE COPD Events: Currently breathing on room air No respiratory distress Supplemental oxygen PRN Continue bronchodilators Complete steroid course Complete antibiotic course Incentive spirometry Awaiting HLOC to [facility]. DVT prophylaxis Labs and imaging reviewed. Rest of plan as noted below. Plan: Supplemental oxygen PRN Titrate to keep O2 sats above 92%. CXR reviewed, demonstrates no acute opacities. No pleural effusion or pneumothorax. Respiratory viral panel negative. Follow up Echo Follow up cardiology recs Continue bronchodilators. Complete antibiotic course Complete steroids Pain control Avoid oversedation Accu-Cheks, ISS. Monitor renal function. Monitor electrolytes. Supplement as necessary. Monitor ins and outs. DVT prophylaxis. Prognosis: Guarded given patient's multiple co-morbidities. Rest of plan per hospitalist and other consultants. Thank you, SUN Bonner, for allowing me to participate in this patient's care. Further recommendations will depend on the patient's clinical course. Please do not hesitate to contact me if you have any questions or concerns. This medical document was created using an electronic medical record system with [employer] dictation system. Although these documentations are being carefully reviewed, there may still be some phonetic and typographical changes. The errors are purely typographical, due to imperfection on the software program, and do not reflect any compromise in the patient's medical care. Plan discussed with: Patient, Other (RN) ADA RAYMOND MD Jan 13, 2025 22:38
[2025-01-13] MEDS: IPRATROPIUM BROM 0.5 MG/2.5ML INH SOL NEB PRN (23:05)
[2025-01-13] MEDS: ALBUTEROL SULF 2.5 MG/0.5ML(0.5%) NEB SOLN NEB PRN (23:05)
[2025-01-14] VITALS (11 sets, daily range): BP systolic 108–149; BP diastolic 36–89; PULSE 61–97; RESP 14–20; TEMP 97.6–98.7; O2SAT 91–99
--- NOTE | 2025-01-14 08:21 | DVHSR ---
APPROVED REPORT EXAM: Two-dimensional and M-mode echocardiogram with Doppler and color Doppler. Blood Pressure: 129/66 mmHg INDICATION SOB RISK FACTORS Height: 5'6", Weight: 208 DIMENSIONS LVDd3.3 (3.8-5.7cm)LA (2D)3.0 (1.9-4.0cm)Aortic Root3.2 (2.0-3.7cm) LVDs2.1 (2.5-4.0cm)LA (MM) (1.9-4.0cm)Aortic Cusp Exc1.7 (1.5-2.0cm) EF (%) 65.0 (55-70%)Rt. Atrium3.1 (1.9-4.0cm)Asc. Aorta cm IVSd1.1 (0.7-1.1cm)RV (D) (1.8-2.4cm) PWd1.0 (0.7-1.1cm) Mitral Valve MitralMitral Stenosis E wave0.74m/sMV Mean GR.mmHg A wave1.09m/sMV Peak GR.mmHg E/A ratio0.72D MVAcm2 DECEL [id number] 1/2 Timems Aortic Valve Aortic ValveAortic Stenosis V11.52m/Soni Mean GR.6mmHg V21.74m/Soni Peak GR.12mmHg LVOT Diameter2.0 (1.8-2.4cm)Doppler AVA2.74cm2 Pulmonic Valve V20.99m/s Other Information Technically limited study due to body habitus. Conclusion lvef 70% by visual estimate moderate LVH small LV cavity normal rv function normal atria normal pericardium no severe valve abnormalities noted
[2025-01-14] MEDS: cefTRIAXone 1GM/50ML D5W 50 ML IV SCH (09:54)
--- NOTE | 2025-01-14 10:07 | DVHPN2 ---
Reviewed: Care Plan, H&P, Labs, Medications, Previous Orders, Radiology Changes from previous H/P or p: No Changes Eyes: No Pain, No Vision change, No Conjunctivae inflammation, No Eyelid inflammation, No Other, No Redness ENT: No Ear pain, No Ear discharge, No Nose pain, No Nose discharge, No Nose congestion, No Mouth pain, No Mouth swelling, No Throat pain, No Throat swelling, No Other Cardiovascular: No Chest Pain, No Palpitations, No Orthopnea, No Paroxysmal Noc. Dyspnea, No Edema, No Lt Headedness, No Other Respiratory: No Cough, No Dry; Shortness of breath, SOB with excertion; No Wheezing, No Hemoptysis, No Pleuritic Pain, No Sputum, No Other Gastrointestinal: No Nausea, No Vomiting, No Abdominal Pain, No Diarrhea, No Constipation, No Melena, No Hematochezia, No Other Genitourinary: No Dysuria, No Frequency, No Incontinence, No Hematuria, No Retention, No Other Musculoskeletal: No other, No neck pain, No shoulder pain, No arm pain, No back pain, No hand pain, No leg pain, No foot pain Skin: No Rash, No Lesions, No Jaundice, No Bruising, No Other Objective Vitals Vital Signs Date Time Temp Pulse Resp B/P (MAP) Pulse Ox O2 Delivery O2 Flow Rate FiO2 01/14/25 09:00 97.8 65 19 117/45 (69) 91 97.8 01/14/25 08:10 Room Air* 0 21 Intake/Output Intake and Output 01/14/25 07:00 Intake Total 2050 ml Balance 2050 ml Intake Oral 2000 ml IV Total 50 ml # Voids 5 Medications Current Medications Medications Dose Ordered Sig/Corona Route Start Time Stop Time Status Last Admin Dose Admin Albuterol 2.5 mg Q4HPRN PRN NEB 01/12/25 20:45 01/13/25 23:05 2.5 MG Ipratropium [place] 0.5 mg Q4HPRN PRN NEB 01/12/25 20:45 01/13/25 23:05 0.5 MG Levothyroxine Sodium 75 mcg QAM@0600 PO 01/13/25 06:00 01/14/25 05:13 75 MCG Methylprednisolone Sodium Succinate 40 mg BID IV 01/12/25 22:00 01/13/25 22:02 40 MG Famotidine 20 mg Q12HR IV 01/12/25 22:00 01/13/25 22:02 20 MG Diagnostic Test (Pha) 1 strip ACHS 01/12/25 22:00 01/14/25 05:42 1 STRIP Insulin Human Regular HS SC 01/12/25 22:00 01/13/25 22:18 8 UNITS Insulin Human Regular AC SC 01/13/25 07:00 01/14/25 05:54 12 UNITS Dextrose 50 ml UD PRN IV 01/12/25 20:45 Sodium Chloride 1,000 ml @ 60 mls/hr [id number] IV 01/12/25 20:45 01/13/25 05:09 60 MLS/HR Acetaminophen/ Hydrocodone Bitart 1 tab Q4HP PRN PO 01/12/25 20:45 Ondansetron HCl 4 mg Q4HP PRN IV 01/12/25 20:45 Docusate Sodium 100 mg BIDPRN PRN PO 01/12/25 20:45 Acetaminophen 650 mg Q6HP PRN PO 01/12/25 20:45 01/14/25 05:13 650 MG Nitroglycerin 0.4 mg Q5MINP PRN SL 01/12/25 21:15 Morphine Sulfate 2 mg Q30M PRN IV 01/12/25 21:15 Ceftriaxone Sodium 50 ml @ 100 mls/hr DAILY@09 IV 01/14/25 09:00 Laboratory Results Laboratory Tests 01/13/25 03:31 Urinalysis Test 01/13/25 17:00 Urine Color Light-yellow (Yellow) Urine Clarity Clear (Clear) Urine pH 5.0 (5.0-9.0) Urine Specific [place] 1.031 (1.001-1.035) Urine Protein Negative (Negative) Urine Ketones Trace (Negative) Urine Blood Negative /uL (Negative) Urine Nitrite Negative (Negative) Urine Bilirubin Negative (Negative) Urine Urobilinogen Normal mg/dL (Negative) Urine Leukocyte Esterase Negative /uL (Negative) Urine RBC 1 /hpf (0 - 4) Urine Microscopic WBC 4 /HPF (0-5) Urine Squamous Epithelial Cells Few /hpf (<5) Urine Bacteria None seen /hpf (None Seen) Urine Glucose 4+ mg/dL (Normal) H Labs and/or images reviewed: Labs reviewed by me, Image(s) reviewed by me Assessment/Plan Assessment/Plan Late entry This note belongs to 01-13-25 Acute hypoxic respiratory failure: Oxygen by nasal cannula Possible right lower lobe pneumonia: Rocephin Generalized weakness Acute respiratory distress Uncontrolled diabetes: Insulin aggressive sliding scale Acute COPD exacerbation: Albuterol Atrovent med-nebs, Solu-Medrol Plan discussed with: Patient My Orders Orders - RAVI HEREDIA MD Procedure Category Date Status Time Ceftriaxone 1gm/50ml PHA 01/14/25 In Process D5w (Rocephin) 09:00 * Cardiology Consult CONS 01/13/25 Transmitted 12:59 *[facility] CONS 01/13/25 Transmitted -[place] 16:26 Date of Service: Jan 13, 2025 Billing Provider: RAVI HEREDIA MD Common Visit Codes: [id number] INP/OBS CARE(HIGH) RAVI HEREDIA MD Jan 14, 2025 10:07
--- NOTE | 2025-01-14 10:11 | DVHPN2 ---
Reviewed: Care Plan, H&P, Labs, Medications, Previous Orders, Radiology Changes from previous H/P or p: No Changes Eyes: No Pain, No Vision change, No Conjunctivae inflammation, No Eyelid inflammation, No Other, No Redness ENT: No Ear pain, No Ear discharge, No Nose pain, No Nose discharge, No Nose congestion, No Mouth pain, No Mouth swelling, No Throat pain, No Throat swelling, No Other Cardiovascular: No Chest Pain, No Palpitations, No Orthopnea, No Paroxysmal Noc. Dyspnea, No Edema, No Lt Headedness, No Other Respiratory: No Cough, No Dry; Shortness of breath, SOB with excertion; No Wheezing, No Hemoptysis, No Pleuritic Pain, No Sputum, No Other Gastrointestinal: No Nausea, No Vomiting, No Abdominal Pain, No Diarrhea, No Constipation, No Melena, No Hematochezia, No Other Genitourinary: No Dysuria, No Frequency, No Incontinence, No Hematuria, No Retention, No Other Musculoskeletal: No other, No neck pain, No shoulder pain, No arm pain, No back pain, No hand pain, No leg pain, No foot pain Skin: No Rash, No Lesions, No Jaundice, No Bruising, No Other Objective Vitals Vital Signs Date Time Temp Pulse Resp B/P (MAP) Pulse Ox O2 Delivery O2 Flow Rate FiO2 01/14/25 09:00 97.8 65 19 117/45 (69) 91 97.8 01/14/25 08:10 Room Air* 0 21 Intake/Output Intake and Output 01/14/25 07:00 Intake Total 2050 ml Balance 2050 ml Intake Oral 2000 ml IV Total 50 ml # Voids 5 Medications Current Medications Medications Dose Ordered Sig/[place]ona Route Start Time Stop Time Status Last Admin Dose Admin Albuterol 2.5 mg Q4HPRN PRN NEB 01/12/25 20:45 01/13/25 23:05 2.5 MG Ipratropium [place] 0.5 mg Q4HPRN PRN NEB 01/12/25 20:45 01/13/25 23:05 0.5 MG Levothyroxine Sodium 75 mcg QAM@0600 PO 01/13/25 06:00 01/14/25 05:13 75 MCG Methylprednisolone Sodium Succinate 40 mg BID IV 01/12/25 22:00 01/14/25 09:54 40 MG Famotidine 20 mg Q12HR IV 01/12/25 22:00 01/14/25 09:53 20 MG Diagnostic Test (Pha) 1 strip ACHS 01/12/25 22:00 01/14/25 05:42 1 STRIP Insulin Human Regular HS SC 01/12/25 22:00 01/13/25 22:18 8 UNITS Insulin Human Regular AC SC 01/13/25 07:00 01/14/25 05:54 12 UNITS Dextrose 50 ml UD PRN IV 01/12/25 20:45 Sodium Chloride 1,000 ml @ 60 mls/hr [id number] IV 01/12/25 20:45 01/13/25 05:09 60 MLS/HR Acetaminophen/ Hydrocodone Bitart 1 tab Q4HP PRN PO 01/12/25 20:45 Ondansetron HCl 4 mg Q4HP PRN IV 01/12/25 20:45 Docusate Sodium 100 mg BIDPRN PRN PO 01/12/25 20:45 Acetaminophen 650 mg Q6HP PRN PO 01/12/25 20:45 01/14/25 05:13 650 MG Nitroglycerin 0.4 mg Q5MINP PRN SL 01/12/25 21:15 Morphine Sulfate 2 mg Q30M PRN IV 01/12/25 21:15 Ceftriaxone Sodium 50 ml @ 100 mls/hr DAILY@09 IV 01/14/25 09:00 01/14/25 09:54 100 MLS/HR Laboratory Results Laboratory Tests 01/13/25 03:31 Urinalysis Test 01/13/25 17:00 Urine Color Light-yellow (Yellow) Urine Clarity Clear (Clear) Urine pH 5.0 (5.0-9.0) Urine Specific [place] 1.031 (1.001-1.035) Urine Protein Negative (Negative) Urine Ketones Trace (Negative) Urine Blood Negative /uL (Negative) Urine Nitrite Negative (Negative) Urine Bilirubin Negative (Negative) Urine Urobilinogen Normal mg/dL (Negative) Urine Leukocyte Esterase Negative /uL (Negative) Urine RBC 1 /hpf (0 - 4) Urine Microscopic WBC 4 /HPF (0-5) Urine Squamous Epithelial Cells Few /hpf (<5) Urine Bacteria None seen /hpf (None Seen) Urine Glucose 4+ mg/dL (Normal) H Labs and/or images reviewed: Labs reviewed by me, Image(s) reviewed by me Assessment/Plan Assessment/Plan Acute hypoxic respiratory failure: Oxygen by nasal cannula, on 2 L of oxygen Possible right lower lobe pneumonia: Rocephin Generalized weakness, improving Acute respiratory distress Uncontrolled diabetes: Blood sugars not well controlled 330, increase insulin to aggressive sliding scale Acute COPD exacerbation: Albuterol Atrovent med-nebs, Solu-Medrol Time spent 45 minutes Plan discussed with: Patient My Orders Orders - RAVI HEREDIA MD Procedure Category Date Status Time Ceftriaxone 1gm/50ml PHA 01/14/25 In Process D5w (Rocephin) 09:00 * Cardiology Consult CONS 01/13/25 Transmitted 12:59 *[facility] CONS 01/13/25 Transmitted -[place] 16:26 Date of Service: Jan 14, 2025 Billing Provider: RAVI HEREDIA MD Common Visit Codes: [id number] INP/OBS CARE(HIGH) RAVI HEREDIA MD Jan 14, 2025 10:11
--- NOTE | 2025-01-14 11:49 | DVHINCON2 ---
Date of service: Jan 14, [address] chong Reason for Consultation Hypercalcemia History of Present Illness 79-year-old female presents to the hospital with shortness of breath. Admitted with a diagnosis of COPD with exacerbation. Nephrology consulted due to elevated calcium level. Currently renal function is normal she reports she has PERSAUD. 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 Martinez Allergies: Coded Allergies: Atorvastatin (Verified Allergy, Mild, fatigue, muscle aches, increased liver enzymes, 01/13/25) Home Meds Reported Medications Cetirizine Hcl (Kls Aller-Vasquez) 10 Mg Tab, 10 MG PO DAILY, TAB 01/13/25 Current Medications Current Medications Medications (Trade) Dose Ordered Sig/Corona Route PRN Reason Start Time Stop Time Status Last Admin Ceftriaxone Sodium 50 ml @ 100 mls/hr DAILY@09 IV 01/14/25 09:00 01/14/25 09:54 Insulin Human Regular (InsuLIN R) AC SC 01/14/25 11:30 01/14/25 11:59 Insulin Human Regular (InsuLIN R) HS SC 01/14/25 22:00 Family History: Alcoholism Cerebrovascular accident (CVA) G8 MOTHER Diabetes mellitus G8 MOTHER G8 SISTER G8 SISTER FH: myocardial infarction G8 MOTHER G8 SISTER G8 SISTER H&P Exam Vital Signs/I&O Vital Sign Date Time Temp Pulse Resp B/P (MAP) Pulse Ox O2 Delivery O2 Flow Rate FiO2 01/14/25 10:14 91 Room Air* 0 21 01/14/25 09:00 97.8 65 19 117/45 (69) 97.8 Intake and Output 01/13/25 01/14/25 19:00 07:00 Intake Total 850 ml 1200 ml Balance 850 ml 1200 ml Intake Oral 800 ml 1200 ml IV Total 50 ml # Voids 3 2 Physical Exam AAF NAD rrr poor inspiration but no wheeze no edema no JVD Labs/Diagnostic Data Labs/Diagnostic Data Laboratory Tests Test 01/14/25 11:10 01/14/25 05:44 01/13/25 22:10 01/13/25 17:00 Range/Units POC Glucose 328 H 303 H 306 H 70-106 mg/dl Urine Color Light-yellow Yellow Urine Clarity Clear Clear Urine pH 5.0 5.0-9.0 Urine Specific [place] 1.031 1.001-1.035 Urine Protein Negative Negative Urine Ketones Trace Negative Urine Blood Negative Negative /uL Urine Nitrite Negative Negative Urine Bilirubin Negative Negative Urine Urobilinogen Normal Negative mg/dL Urine Leukocyte Esterase Negative Negative /uL Urine RBC 1 0 - 4 /hpf Urine Microscopic WBC 4 0-5 /HPF Urine Squamous Epithelial Cells Few <5 /hpf Urine Bacteria None seen None Seen /hpf Urine Glucose 4+ H Normal mg/dL Test 01/13/25 16:56 01/13/25 16:30 01/13/25 11:24 01/13/25 05:13 Range/Units POC Glucose 313 H 357 H 272 H 70-106 mg/dl Influenza Type A Antigen Negative Negative Influenza Type B Antigen Negative Negative SARS-CoV-2 Antigen (Rapid) Negative NEGATIVE Test 01/13/25 03:31 01/12/25 23:57 01/12/25 19:27 01/12/25 18:48 Range/Units White Blood Count 8.5 4.4-10.8 10^3/uL Red Blood Count 4.72 4.0-5.20 10^6/uL Hemoglobin 12.5 12.2-16.2 g/dL Hematocrit 39.8 36.0-46.0 % Mean Corpuscular Volume 84.3 80.0-100.0 fL Mean Corpuscular Hemoglobin 26.5 L 28.0-32.0 pg Mean Corpuscular Hemoglobin Concent 31.4 L 32.0-36.0 g/dL Red Cell Distribution Width 14.7 H 11.8-14.3 % Platelet Count 296 140-450 10^3/uL Mean Platelet Volume 9.3 6.9-10.8 fL Neutrophils (%) (Auto) 73.3 37.0-80.0 % Lymphocytes (%) (Auto) 21.5 10.0-50.0 % Monocytes (%) (Auto) 3.0 0.0-12.0 % Eosinophils (%) (Auto) 1.3 0.0-7.0 % Basophils (%) (Auto) 0.9 0.0-2.0 % Neutrophils # (Auto) 6.3 1.6-8.6 10 ^3/uL Lymphocytes # (Auto) 1.8 0.4-5.4 10 ^3/uL Monocytes # (Auto) 0.3 0-1.3 10 ^3/uL Eosinophils # (Auto) 0.1 0-0.8 10 ^3/uL Basophils # (Auto) 0.1 0-0.2 10 ^3/uL Nucleated Red Blood Cells 0.1 % Sodium Level 140 136-145 mmol/L Potassium Level 4.2 3.5-5.1 mmol/L Chloride Level 104 98-107 mmol/L Carbon Dioxide Level 27 20-31 mmol/L Anion Gap 9 5-15 Blood Urea Nitrogen 8 L 9-23 mg/dL Creatinine 1.04 H 0.550-1.02 mg/dL Glomerular Filtration Rate Calc 55 >90 mL/min BUN/Creatinine Ratio 7.7 L 10.0-20.0 Serum Glucose 287 H 74-106 mg/dL Calcium Level 10.2 8.7-10.4 mg/dL Total Bilirubin 0.4 0.2-1.0 mg/dL Aspartate Amino Transferase (AST) 30 13-40 U/L Alanine Aminotransferase (ALT) 29 7-40 U/L Alkaline Phosphatase 63 46-116 U/L Total Protein 7.0 5.7-8.2 g/dL Albumin 4.4 3.2-4.8 g/dL POC Glucose 190 H 70-106 mg/dl Troponin I High Sensitivity < 3 L </=34 ng/L Thyroid Stimulating Hormone (TSH) 1.93 0.55-4.78 uIU/mL Blood Gas Specimen Type Arterial Blood Gas Sample Site Right radial Blood Gas Patient Temperature 37.0 Arterial Blood Date Drawn [id number] Arterial Blood pH 7.486 H 7.350-7.450 Arterial Blood Partial Pressure CO2 36.2 32.0-45.0 mmHg Arterial Blood Partial Pressure O2 72.1 L 83.0-108.0 mmHg Arterial Blood HCO3 26.7 21.0-28.0 mmol/L Arterial Blood Oxygen Saturation 95.3 94.0-98.0 % Arterial Blood Base Excess 3.5 H -2.0-3.0 mmol/L Arterial Blood Oxyhemoglobin 94.1 94.0-98.0 % Arterial Blood Carboxyhemoglobin 0.9 0.5-1.5 % Arterial Blood Methemoglobin 0.4 0.0-1.5 % Jarvis Test Yes Blood Gas Total Hemoglobin 13.80 12.0-16.0 g/dL Blood Gas Modality Room air FiO2 % 21.0 Test 01/12/25 18:27 01/12/25 18:15 Range/Units White Blood Count 9.9 4.4-10.8 10^3/uL Red Blood Count 4.78 4.0-5.20 10^6/uL Hemoglobin 13.0 12.2-16.2 g/dL Hematocrit 40.2 36.0-46.0 % Mean Corpuscular Volume 84.1 80.0-100.0 fL Mean Corpuscular Hemoglobin 27.3 L 28.0-32.0 pg Mean Corpuscular Hemoglobin Concent 32.4 32.0-36.0 g/dL Red Cell Distribution Width 14.1 11.8-14.3 % Platelet Count 313 140-450 10^3/uL Mean Platelet Volume 9.4 6.9-10.8 fL Neutrophils (%) (Auto) 46.9 37.0-80.0 % Lymphocytes (%) (Auto) 43.5 10.0-50.0 % Monocytes (%) (Auto) 6.7 0.0-12.0 % Eosinophils (%) (Auto) 1.9 0.0-7.0 % Basophils (%) (Auto) 1.0 0.0-2.0 % Neutrophils # (Auto) 4.7 1.6-8.6 10 ^3/uL Lymphocytes # (Auto) 4.3 0.4-5.4 10 ^3/uL Monocytes # (Auto) 0.7 0-1.3 10 ^3/uL Eosinophils # (Auto) 0.2 0-0.8 10 ^3/uL Basophils # (Auto) 0.1 0-0.2 10 ^3/uL Nucleated Red Blood Cells 0.1 % D-Dimer, Quantitative 0.30 0.0-0.49 mg/L FEU Sodium Level 139 136-145 mmol/L Potassium Level 4.5 3.5-5.1 mmol/L Chloride Level 102 98-107 mmol/L Carbon Dioxide Level 29 20-31 mmol/L Anion Gap 8 5-15 Blood Urea Nitrogen 8 L 9-23 mg/dL Creatinine 0.93 0.550-1.02 mg/dL Glomerular Filtration Rate Calc 63 >90 mL/min BUN/Creatinine Ratio 8.6 L 10.0-20.0 Serum Glucose 208 H 74-106 mg/dL Lactic Acid Level 1.8 0.4-2.0 mmol/L Calcium Level 10.7 H 8.7-10.4 mg/dL Total Bilirubin 0.6 0.2-1.0 mg/dL Aspartate Amino Transferase (AST) 40 13-40 U/L Alanine Aminotransferase (ALT) 36 7-40 U/L Alkaline Phosphatase 70 46-116 U/L Troponin I High Sensitivity < 3 L </=34 ng/L B-Type Natriuretic Peptide 12.24 0-100 pg/mL Total Protein 7.3 5.7-8.2 g/dL Albumin 4.9 H 3.2-4.8 g/dL POC Glucose 210 H 70-106 mg/dl Assessment Acute kidney injury No previous history of kidney disease Hypercalcemia COPD with exacerbation PERSAUD Labs pending today If patient continues to have elevated calcium level then recommend obtaining PTH, phosphorus level, vitamin-D level In the interim continue with IV fluids And treatment of pulmonary condition as per principal quality engineer's Echo resulted, cardiology eval Plan discussed with: Patient GAIL CLARKE MD Jan 14, 2025 11:49
[2025-01-14] MEDS: InsuLIN REG 1unit/0.01ml Soln (100units/ml) SC SCH ×2 (11:59→22:19)
[2025-01-14 13:55] LABS: Chloride 106 mmol/L (98-107); Potassium 4.2 mmol/L (3.5-5.1); Sodium 139 mmol/L (136-145)
[2025-01-14 13:56] LABS: Anion Gap 10 (5-15); Calcium 9.8 mg/dL (8.7-10.4); Carbon Dioxide 23 mmol/L (20-31)
[2025-01-14 14:01] LABS: BUN/Creatinine Ratio 13.4 (10.0-20.0); Blood Urea Nitrogen 13 mg/dL (9-23)
[2025-01-14 14:04] LABS: Glucose 282 mg/dL (74-106)
[2025-01-14] MEDS: LORATADINE 10 MG TAB PO ONE (16:42)
--- NOTE | 2025-01-14 22:18 | DVHPN2 ---
Progress Note - Dictate Date Seen: Jan 14, 2025 Medical Necessity Reason Pt with a Central, PICC or Fol: No Subjective Patient seen and examined at bedside. Remains on room air Overnight events reviewed. vital signs Vital Sign Date Time Temp Pulse Resp B/P (MAP) Pulse Ox O2 Delivery O2 Flow Rate FiO2 01/14/25 21:00 98.7 74 20 117/49 (71) 94 98.7 01/14/25 10:14 Room Air* 0 21 Total Intake and Output 01/13/25 01/13/25 01/14/25 15:00 23:00 07:00 Intake Total 850 ml 1200 ml Balance 850 ml 1200 ml medications Current Medications Medications Dose Ordered Sig/[place] Route Start Time Stop Time Status Last Admin Dose Admin Albuterol 2.5 mg Q4HPRN PRN NEB 01/12/25 20:45 01/13/25 23:05 2.5 MG Ipratropium [place] 0.5 mg Q4HPRN PRN NEB 01/12/25 20:45 01/13/25 23:05 0.5 MG Levothyroxine Sodium 75 mcg QAM@0600 PO 01/13/25 06:00 01/14/25 05:13 75 MCG Methylprednisolone Sodium Succinate 40 mg BID IV 01/12/25 22:00 01/14/25 09:54 40 MG Famotidine 20 mg Q12HR IV 01/12/25 22:00 01/14/25 09:53 20 MG Diagnostic Test (Pha) 1 strip ACHS 01/12/25 22:00 01/14/25 16:43 1 STRIP Dextrose 50 ml UD PRN IV 01/12/25 20:45 Sodium Chloride 1,000 ml @ 60 mls/hr [id number] IV 01/12/25 20:45 01/13/25 05:09 60 MLS/HR Acetaminophen/ Hydrocodone Bitart 1 tab Q4HP PRN PO 01/12/25 20:45 Ondansetron HCl 4 mg Q4HP PRN IV 01/12/25 20:45 Docusate Sodium 100 mg BIDPRN PRN PO 01/12/25 20:45 Acetaminophen 650 mg Q6HP PRN PO 01/12/25 20:45 01/14/25 05:13 650 MG Nitroglycerin 0.4 mg Q5MINP PRN SL 01/12/25 21:15 Morphine Sulfate 2 mg Q30M PRN IV 01/12/25 21:15 Ceftriaxone Sodium 50 ml @ 100 mls/hr DAILY@09 IV 01/14/25 09:00 01/14/25 09:54 100 MLS/HR Insulin Human Regular AC SC 01/14/25 11:30 01/14/25 16:43 12 UNITS Insulin Human Regular HS SC 01/14/25 22:00 Loratadine 10 mg DAILY PO 01/15/25 10:00 objective Gen.: Patient lying in bed in no apparent distress. On room air. Head: Normocephalic, atraumatic. Eyes: EOMI/PERRLA. Ears: Normal hearing. Normal anatomy. Neck/trachea: Trachea midline, supple. Nose: Normal external anatomy. Mouth: Moist mucous membranes. Chest: Decreased air entry bilaterally. No wheezing or rhonchi. Cardiovascular: Positive S1, positive S2. Regular rate and rhythm. Abdomen: Positive bowel sounds in all 4 quadrants. Soft, non-tender, non- distended. : Deferred. Rectal: Deferred. Skin: Warm, dry. Intact. Extremities: 2+ radial pulses bilaterally. No lower extremity edema. Neuro: Awake, alert, oriented x3. No gross motor or sensory deficits. Cranial nerves II through XII intact. Gait not assessed. laboratory and microbiology Laboratory Tests 01/14/25 13:25 01/13/25 03:31 Test 01/14/25 13:25 Range/Units Serum Glucose 282 H 74-106 mg/dL Assessment/Plan Impression: Acute hypoxic respiratory failure Dyspnea Generalized weakness Acute respiratory distress AE COPD Obesity BMI 36.4 Events: Remains on room air No respiratory distress Supplemental oxygen PRN Continue bronchodilators Complete steroid course Complete antibiotic course Incentive spirometry Pain control Avoid oversedation Accu-Cheks, ISS. DVT prophylaxis Labs and imaging reviewed. Rest of plan as noted below. Plan: Supplemental oxygen Titrate to keep O2 sats above 92%. CXR demonstrates no acute opacities. No pleural effusion or pneumothorax. Respiratory viral panel negative. Follow up Echo Continue bronchodilators. Continue antibiotics IV steroids Pain control Avoid oversedation Accu-Cheks, ISS. Monitor renal function. Monitor electrolytes. Supplement as necessary. Monitor ins and outs. DVT prophylaxis. Prognosis: Poor given patient's multiple co-morbidities. Rest of plan per hospitalist and other consultants. Thank you, SUN Bonner, for allowing me to participate in this patient's care. Further recommendations will depend on the patient's clinical course. Please do not hesitate to contact me if you have any questions or concerns. This medical document was created using an electronic medical record system with [employer] dictation system. Although these documentations are being carefully reviewed, there may still be some phonetic and typographical changes. The errors are purely typographical, due to imperfection on the software program, and do not reflect any compromise in the patient's medical care. Plan discussed with: Patient, Other (RICHA Mendoza) ADA RAYMOND MD Jan 14, 2025 22:18
[2025-01-15] VITALS (7 sets, daily range): BP systolic 115–133; BP diastolic 42–65; PULSE 54–80; RESP 16–20; TEMP 97.9–98.6; O2SAT 94–98
[2025-01-15 07:16] LABS: Anion Gap 9 (5-15); Carbon Dioxide 25 mmol/L (20-31); Potassium 4.1 mmol/L (3.5-5.1); Sodium 141 mmol/L (136-145)
[2025-01-15 07:17] LABS: Calcium 8.9 mg/dL (8.7-10.4)
[2025-01-15 07:22] LABS: Blood Urea Nitrogen 16 mg/dL (9-23)
[2025-01-15 07:36] LABS: Chloride 107 mmol/L (98-107); Glucose 299 mg/dL (74-106)
[2025-01-15] MEDS: LORATADINE 10 MG TAB PO SCH (08:57)
--- NOTE | 2025-01-15 12:21 | DVHPN2 ---
Reviewed: Care Plan, H&P, Labs, Medications, Previous Orders, Radiology Changes from previous H/P or p: No Changes Eyes: No Pain, No Vision change, No Conjunctivae inflammation, No Eyelid inflammation, No Other, No Redness ENT: No Ear pain, No Ear discharge, No Nose pain, No Nose discharge, No Nose congestion, No Mouth pain, No Mouth swelling, No Throat pain, No Throat swelling, No Other Cardiovascular: No Chest Pain, No Palpitations, No Orthopnea, No Paroxysmal Noc. Dyspnea, No Edema, No Lt Headedness, No Other Respiratory: No Cough, No Dry; Shortness of breath, SOB with excertion; No Wheezing, No Hemoptysis, No Pleuritic Pain, No Sputum, No Other Gastrointestinal: No Nausea, No Vomiting, No Abdominal Pain, No Diarrhea, No Constipation, No Melena, No Hematochezia, No Other Genitourinary: No Dysuria, No Frequency, No Incontinence, No Hematuria, No Retention, No Other Musculoskeletal: No other, No neck pain, No shoulder pain, No arm pain, No back pain, No hand pain, No leg pain, No foot pain Skin: No Rash, No Lesions, No Jaundice, No Bruising, No Other Objective Vitals Vital Signs Date Time Temp Pulse Resp B/P (MAP) Pulse Ox O2 Delivery O2 Flow Rate FiO2 01/15/25 09:38 96 Room Air 0.0 01/15/25 09:38 21 01/15/25 09:00 98.0 54 16 133/65 (87) 98.0 Intake/Output Intake and Output 01/15/25 07:00 Intake Total 2230 ml Balance 2230 ml Intake Oral 2180 ml IV Total 50 ml # Voids 9 Medications Current Medications Medications Dose Ordered Sig/[place] Route Start Time Stop Time Status Last Admin Dose Admin Albuterol 2.5 mg Q4HPRN PRN NEB 01/12/25 20:45 01/13/25 23:05 2.5 MG Ipratropium [place] 0.5 mg Q4HPRN PRN NEB 01/12/25 20:45 01/13/25 23:05 0.5 MG Levothyroxine Sodium 75 mcg QAM@0600 PO 01/13/25 06:00 01/15/25 06:00 75 MCG Famotidine 20 mg Q12HR IV 01/12/25 22:00 01/15/25 08:57 20 MG Diagnostic Test (Pha) 1 strip ACHS 01/12/25 22:00 01/15/25 11:47 1 STRIP Dextrose 50 ml UD PRN IV 01/12/25 20:45 Sodium Chloride 1,000 ml @ 60 mls/hr [id number] IV 01/12/25 20:45 01/14/25 22:27 60 MLS/HR Acetaminophen/ Hydrocodone Bitart 1 tab Q4HP PRN PO 01/12/25 20:45 Ondansetron HCl 4 mg Q4HP PRN IV 01/12/25 20:45 Docusate Sodium 100 mg BIDPRN PRN PO 01/12/25 20:45 Acetaminophen 650 mg Q6HP PRN PO 01/12/25 20:45 01/15/25 06:13 650 MG Nitroglycerin 0.4 mg Q5MINP PRN SL 01/12/25 21:15 Morphine Sulfate 2 mg Q30M PRN IV 01/12/25 21:15 Ceftriaxone Sodium 50 ml @ 100 mls/hr DAILY@09 IV 01/14/25 09:00 01/15/25 08:56 100 MLS/HR Insulin Human Regular AC SC 01/14/25 11:30 01/15/25 11:48 12 UNITS Insulin Human Regular HS SC 01/14/25 22:00 01/14/25 22:19 8 UNITS Loratadine 10 mg DAILY PO 01/15/25 10:00 01/15/25 08:57 10 MG Prednisone 20 mg BID PO 01/15/25 22:00 01/20/25 21:59 Laboratory Results Laboratory Tests 01/13/25 03:31 01/15/25 06:14 Chemistry Test 01/14/25 13:25 01/15/25 06:14 Calcium Level 9.8 mg/dL (8.7-10.4) 8.9 mg/dL (8.7-10.4) Urinalysis Test 01/13/25 17:00 Urine Color Light-yellow (Yellow) Urine Clarity Clear (Clear) Urine pH 5.0 (5.0-9.0) Urine Specific [place] 1.031 (1.001-1.035) Urine Protein Negative (Negative) Urine Ketones Trace (Negative) Urine Blood Negative /uL (Negative) Urine Nitrite Negative (Negative) Urine Bilirubin Negative (Negative) Urine Urobilinogen Normal mg/dL (Negative) Urine Leukocyte Esterase Negative /uL (Negative) Urine RBC 1 /hpf (0 - 4) Urine Microscopic WBC 4 /HPF (0-5) Urine Squamous Epithelial Cells Few /hpf (<5) Urine Bacteria None seen /hpf (None Seen) Urine Glucose 4+ mg/dL (Normal) H Labs and/or images reviewed: Labs reviewed by me, Image(s) reviewed by me Assessment/Plan Assessment/Plan Acute hypoxic respiratory failure: Oxygen by nasal cannula, on 2 L of oxygen Possible right lower lobe pneumonia: Rocephin, Solu-Medrol Generalized weakness, improving Acute respiratory distress Uncontrolled diabetes: Blood sugars not well controlled 330, increase insulin to aggressive sliding scale Time spent 45 minutes Plan discussed with: Patient My Orders Orders - RAVI HEREDIA MD Procedure Category Date Status Time Loratadine Tablet PHA 01/15/25 In Process (Claritin Tablet) 10:00 Date of Service: Jan 15, 2025 Billing Provider: RAVI HEREDIA MD Common Visit Codes: [id number] INP/OBS CARE(HIGH) RAVI HEREDIA MD Jan 15, 2025 12:21
[2025-01-15] MEDS ORDERED: AZIT500T66 PO (12:23)
[2025-01-15] MEDS ORDERED: ALBUAER3 IN (12:23)
[2025-01-15] MEDS ORDERED: PRED20TA2 PO (12:23)
--- NOTE | 2025-01-15 12:26 | DVHDS2 ---
Discharge Summary Date of Admission Jan 12, 2025 at 21:15 Date of Discharge: Jan 15, 2025 Admitting Diagnosis Shortness of breath Wounds: None Labs/Diagnostic Data: Laboratory Results Test 01/15/25 11:37 01/15/25 06:14 01/13/25 17:00 01/13/25 16:30 POC Glucose 259 mg/dl (70-106) Sodium Level 141 mmol/L (136-145) Potassium Level 4.1 mmol/L (3.5-5.1) Chloride Level 107 mmol/L (98-107) Carbon Dioxide Level 25 mmol/L (20-31) Anion Gap 9 (5-15) Blood Urea Nitrogen 16 mg/dL (9-23) Creatinine 0.94 mg/dL (0.550-1.02) Glomerular Filtration Rate Calc 62 mL/min (>90) BUN/Creatinine Ratio 17.0 (10.0-20.0) Serum Glucose 299 mg/dL (74-106) Calcium Level 8.9 mg/dL (8.7-10.4) Urine Color Light-yellow (Yellow) Urine Clarity Clear (Clear) Urine pH 5.0 (5.0-9.0) Urine Specific [place] 1.031 (1.001-1.035) Urine Protein Negative (Negative) Urine Ketones Trace (Negative) Urine Blood Negative /uL (Negative) Urine Nitrite Negative (Negative) Urine Bilirubin Negative (Negative) Urine Urobilinogen Normal mg/dL (Negative) Urine Leukocyte Esterase Negative /uL (Negative) Urine RBC 1 /hpf (0 - 4) Urine Microscopic WBC 4 /HPF (0-5) Urine Squamous Epithelial Cells Few /hpf (<5) Urine Bacteria None seen /hpf (None Seen) Urine Glucose 4+ mg/dL (Normal) Influenza Type A Antigen Negative (Negative) Influenza Type B Antigen Negative (Negative) SARS-CoV-2 Antigen (Rapid) Negative (NEGATIVE) Test 01/13/25 03:31 01/12/25 19:27 01/12/25 18:48 01/12/25 18:27 White Blood Count 8.5 10^3/uL (4.4-10.8) Red Blood Count 4.72 10^6/uL (4.0-5.20) Hemoglobin 12.5 g/dL (12.2-16.2) Hematocrit 39.8 % (36.0-46.0) Mean Corpuscular Volume 84.3 fL (80.0-100.0) Mean Corpuscular Hemoglobin 26.5 pg (28.0-32.0) Mean Corpuscular Hemoglobin Concent 31.4 g/dL (32.0-36.0) Red Cell Distribution Width 14.7 % (11.8-14.3) Platelet Count 296 10^3/uL (140-450) Mean Platelet Volume 9.3 fL (6.9-10.8) Neutrophils (%) (Auto) 73.3 % (37.0-80.0) Lymphocytes (%) (Auto) 21.5 % (10.0-50.0) Monocytes (%) (Auto) 3.0 % (0.0-12.0) Eosinophils (%) (Auto) 1.3 % (0.0-7.0) Basophils (%) (Auto) 0.9 % (0.0-2.0) Neutrophils # (Auto) 6.3 10 ^3/uL (1.6-8.6) Lymphocytes # (Auto) 1.8 10 ^3/uL (0.4-5.4) Monocytes # (Auto) 0.3 10 ^3/uL (0-1.3) Eosinophils # (Auto) 0.1 10 ^3/uL (0-0.8) Basophils # (Auto) 0.1 10 ^3/uL (0-0.2) Nucleated Red Blood Cells 0.1 % Total Bilirubin 0.4 mg/dL (0.2-1.0) Aspartate Amino Transferase (AST) 30 U/L (13-40) Alanine Aminotransferase (ALT) 29 U/L (7-40) Alkaline Phosphatase 63 U/L (46-116) Total Protein 7.0 g/dL (5.7-8.2) Albumin 4.4 g/dL (3.2-4.8) Troponin I High Sensitivity < 3 ng/L (</=34) Thyroid Stimulating Hormone (TSH) 1.93 uIU/mL (0.55-4.78) Blood Gas Specimen Type Arterial Blood Gas Sample Site Right radial Blood Gas Patient Temperature 37.0 Arterial Blood Date Drawn [id number] Arterial Blood pH 7.486 (7.350-7.450) Arterial Blood Partial Pressure CO2 36.2 mmHg (32.0-45.0) Arterial Blood Partial Pressure O2 72.1 mmHg (83.0-108.0) Arterial Blood HCO3 26.7 mmol/L (21.0-28.0) Arterial Blood Oxygen Saturation 95.3 % (94.0-98.0) Arterial Blood Base Excess 3.5 mmol/L (-2.0-3.0) Arterial Blood Oxyhemoglobin 94.1 % (94.0-98.0) Arterial Blood Carboxyhemoglobin 0.9 % (0.5-1.5) Arterial Blood Methemoglobin 0.4 % (0.0-1.5) Jarvis Test Yes Blood Gas Total Hemoglobin 13.80 g/dL (12.0-16.0) Blood Gas Modality Room air FiO2 % 21.0 D-Dimer, Quantitative 0.30 mg/L FEU (0.0-0.49) Lactic Acid Level 1.8 mmol/L (0.4-2.0) B-Type Natriuretic Peptide 12.24 pg/mL (0-100) Other Laboratory Tests 01/15/25 06:14 01/13/25 03:31 Brief Hx & Hospital Course: 79-year-old female with a previous history of smoking quit 15 years ago came in complaining of shortness of breaths found to have right lower lobe pneumonia treated with Rocephin Solu-Medrol albuterol. She was significantly improved at the time of discharge on room air. Stable vital signs. Discharged home on azithromycin prednisone tablets and Ventolin MDI she will follow up with the primary Dr. Consults/Reason for consult Pulmonology Dr. [place] Operations or Procedures None Condition at Discharge: Fair Final Diagnosis/Problems List Acute hypoxic respiratory failure: Oxygen by nasal cannula, on 2 L of oxygen Possible right lower lobe pneumonia: Rocephin, Solu-Medrol Generalized weakness, improving Acute respiratory distress Uncontrolled diabetes: Blood sugars not well controlled 330, increase insulin to aggressive sliding scale Discharge Disposition: Home Discharge Instruct/Medications Diet: Regular Activity: Light activity Follow Up/Referral: Follow up with your primary Dr Medications: Azithromycin Ventolin MDI Prednisone Transmitted to pharmacy 35 (Time Taken for discharge summary 35 minutes) Discharge Statement: "Patient was advised to return to the ER or call 911 if any headaches, dizziness, shortness of breath, chest pain, abdominal pain, bleeding, fevers, or worsening of medical condition. Patient was counseled about treatment plan, medications, possible side effects, patientverbalized understanding. All questions were answered to the best of my ability. This discharge took greater then 30 minutes in planning, reviewing documentation, counseling the patient, and discussing with other team members." ASSESSMENT ASSESSMENT Hospital Course Improved Assessment Acute hypoxic respiratory failure: Oxygen by nasal cannula, on 2 L of oxygen Possible right lower lobe pneumonia: Rocephin, Solu-Medrol Generalized weakness, improving Acute respiratory distress Uncontrolled diabetes: Blood sugars not well controlled 330, increase insulin to aggressive sliding scale Date of Service: Jan 15, 2025 Billing Provider: RAVI HEREDIA MD Common Visit Codes: [id number] DISCH DAY >30min RAVI HEREDIA MD Jan 15, 2025 12:26
--- NOTE | 2025-01-15 13:08 | DVHPN2 ---
Progress Note Date Seen: Jan 15, 2025 Medical Necessity Reason Pt with a Central, PICC or Fol: No Subjective Patient reports: Feels better Objective vital signs Vital Sign Date Time Temp Pulse Resp B/P (MAP) Pulse Ox O2 Delivery O2 Flow Rate FiO2 01/15/25 09:38 96 Room Air 0.0 01/15/25 09:38 21 01/15/25 09:00 98.0 54 16 133/65 (87) 98.0 Total Intake and Output 01/14/25 01/14/25 01/15/25 15:00 23:00 07:00 Intake Total 50 ml 2080 ml 100 ml Balance 50 ml 2080 ml 100 ml medications Current Medications Medications Dose Ordered Sig/[place] Route Start Time Stop Time Status Last Admin Dose Admin Albuterol 2.5 mg Q4HPRN PRN NEB 01/12/25 20:45 01/13/25 23:05 2.5 MG Ipratropium [place] 0.5 mg Q4HPRN PRN NEB 01/12/25 20:45 01/13/25 23:05 0.5 MG Levothyroxine Sodium 75 mcg QAM@0600 PO 01/13/25 06:00 01/15/25 06:00 75 MCG Famotidine 20 mg Q12HR IV 01/12/25 22:00 01/15/25 08:57 20 MG Diagnostic Test (Pha) 1 strip ACHS 01/12/25 22:00 01/15/25 11:47 1 STRIP Dextrose 50 ml UD PRN IV 01/12/25 20:45 Sodium Chloride 1,000 ml @ 60 mls/hr [id number] IV 01/12/25 20:45 01/14/25 22:27 60 MLS/HR Acetaminophen/ Hydrocodone Bitart 1 tab Q4HP PRN PO 01/12/25 20:45 Ondansetron HCl 4 mg Q4HP PRN IV 01/12/25 20:45 Docusate Sodium 100 mg BIDPRN PRN PO 01/12/25 20:45 Acetaminophen 650 mg Q6HP PRN PO 01/12/25 20:45 01/15/25 06:13 650 MG Nitroglycerin 0.4 mg Q5MINP PRN SL 01/12/25 21:15 Morphine Sulfate 2 mg Q30M PRN IV 01/12/25 21:15 Ceftriaxone Sodium 50 ml @ 100 mls/hr DAILY@09 IV 01/14/25 09:00 01/15/25 08:56 100 MLS/HR Insulin Human Regular AC SC 01/14/25 11:30 01/15/25 11:48 12 UNITS Insulin Human Regular HS SC 01/14/25 22:00 01/14/25 22:19 8 UNITS Loratadine 10 mg DAILY PO 01/15/25 10:00 01/15/25 08:57 10 MG Prednisone 20 mg BID PO 01/15/25 22:00 01/20/25 21:59 Examination: GENERAL:Normal, CVS:Normal, ABDOMEN:Normal laboratory and microbiology Laboratory Tests 01/15/25 06:14 01/13/25 03:31 Test 01/15/25 06:14 Range/Units Serum Glucose 299 H 74-106 mg/dL Problem List/Assessment/Plan Problem List/Assessment/Plan Acute kidney injury No previous history of kidney disease Hypercalcemia COPD with exacerbation PERSAUD Aaron has resolved all electrolytes are wnl no new recs Plan discussed with: Patient GAIL CLARKE MD Jan 15, 2025 13:08
[2025-01-15] MEDS ORDERED: predniSONE 20 MG TAB PO SCH (22:00)
--- NOTE | 2025-01-15 22:21 | DVHPN2 ---
Progress Note - Dictate Date Seen: Jan 15, 2025 Medical Necessity Reason Pt with a Central, PICC or Fol: No Subjective Patient seen and examined at bedside. Remains on room air Overnight events reviewed. vital signs Vital Sign Date Time Temp Pulse Resp B/P (MAP) Pulse Ox O2 Delivery O2 Flow Rate FiO2 01/15/25 13:00 97.9 56 18 128/56 (80) 97 97.9 01/15/25 09:38 Room Air 0.0 01/15/25 09:38 21 Total Intake and Output 01/14/25 01/14/25 01/15/25 15:00 23:00 07:00 Intake Total 50 ml 2080 ml 100 ml Balance 50 ml 2080 ml 100 ml objective Gen.: Patient lying in bed in no apparent distress. On room air. Head: Normocephalic, atraumatic. Eyes: EOMI/PERRLA. Ears: Normal hearing. Normal anatomy. Neck/trachea: Trachea midline, supple. Nose: Normal external anatomy. Mouth: Moist mucous membranes. Chest: Decreased air entry bilaterally. No wheezing or rhonchi. Cardiovascular: Positive S1, positive S2. Regular rate and rhythm. Abdomen: Positive bowel sounds in all 4 quadrants. Soft, non-tender, non- distended. : Deferred. Rectal: Deferred. Skin: Warm, dry. Intact. Extremities: 2+ radial pulses bilaterally. No lower extremity edema. Neuro: Awake, alert, oriented x3. No gross motor or sensory deficits. Cranial nerves II through XII intact. Gait not assessed. laboratory and microbiology Laboratory Tests 01/15/25 06:14 01/13/25 03:31 Test 01/15/25 06:14 Range/Units Serum Glucose 299 H 74-106 mg/dL Assessment/Plan Impression: Acute hypoxic respiratory failure Dyspnea Generalized weakness Acute respiratory distress AE COPD Obesity BMI 36.4 Events: Remains on room air No respiratory distress Supplemental oxygen PRN Continue bronchodilators Complete steroid course - IV steroids transitioned to PO prednisone d/t hyperglycemia Complete antibiotic course Incentive spirometry Pain control Avoid oversedation Accu-Cheks, ISS d/t hyperglycemia. DVT prophylaxis Patient is stable for discharge from the pulmonary standpoint. Labs and imaging reviewed. Rest of plan as noted below. Plan: Supplemental oxygen Titrate to keep O2 sats above 92%. CXR demonstrates no acute opacities. No pleural effusion or pneumothorax. Respiratory viral panel negative. Continue bronchodilators. Complete antibiotics Continue PO steroids Pain control Avoid oversedation Accu-Cheks, ISS. Monitor renal function. Monitor electrolytes. Supplement as necessary. Monitor ins and outs. DVT prophylaxis. Prognosis: Guarded given patient's multiple co-morbidities. Rest of plan per hospitalist and other consultants. Thank you, W[employer] TECHNICIAN Ha, for allowing me to participate in this patient's care. Further recommendations will depend on the patient's clinical course. Please do not hesitate to contact me if you have any questions or concerns. This medical document was created using an electronic medical record system with [employer] dictation system. Although these documentations are being carefully reviewed, there may still be some phonetic and typographical changes. The errors are purely typographical, due to imperfection on the software program, and do not reflect any compromise in the patient's medical care. Plan discussed with: Patient, Other (RICHA Anderson) ADA RAYMOND MD Jan 15, 2025 22:21
== END 2025-01-15 13:55 | disposition home or self-care (01) | DRG 177 ==
LOC: ER 17:56 → OVERFLOW 21:15 → TELE-EAST 01-13 04:19 → TELE-WESTW 01-15 03:20
PROVIDERS: ADMIT Family Medicine; ATTEND Family Medicine
DX: J15.69 Pneumonia due to other Gram-negative bacteria (principal); J96.01 Acute respiratory failure with hypoxia; J44.1 Chronic obstructive pulmonary disease with (acute) exacerbation; N17.9 Acute kidney failure, unspecified; J44.0 Chronic obstructive pulmonary disease with (acute) lower respiratory infection; J15.9 Unspecified bacterial pneumonia; Z68.36 Body mass index [BMI] 36.0-36.9, adult; I10 Essential (primary) hypertension; E11.40 Type 2 diabetes mellitus with diabetic neuropathy, unspecified; E03.9 Hypothyroidism, unspecified; E83.52 Hypercalcemia; Z20.822 Contact with and (suspected) exposure to COVID-19; E78.5 Hyperlipidemia, unspecified; E66.9 Obesity, unspecified; Z90.710 Acquired absence of both cervix and uterus; Z90.49 Acquired absence of other specified parts of digestive tract; Z82.3 Family history of stroke; Z83.3 Family history of diabetes mellitus; Z82.49 Family history of ischemic heart disease and other diseases of the circulatory system; Z87.891 Personal history of nicotine dependence
CPT/HCPCS: 36415; 36600; 71045; 80048; 80053; 81001; 82805; 82962; 83605; 83880; 84443; 84484; 85025; 85379; 87426; 87804; 93005; 93306; 94640; G0378; J1815; J3490

== ENCOUNTER 2025-06-04 12:24 | Outpatient (CLI) | payer OTHER ==
[~2025-06-04 12:24] MED LIST: ALBUAER3 IN; AZIT500T66 PO; CETI10TA2 PO; PRED20TA2 PO
[2025-06-04 12:42] LABS: Hematocrit 39.0 % (36.0-46.0); Hemoglobin 12.5 g/dL (12.2-16.2); Mean Corpuscular Hemoglobin 26.6 pg (28.0-32.0); Mean Corpuscular Volume 82.8 fL (80.0-100.0); Nucleated Red Blood Cells % 0.0 %
[2025-06-04 13:16] LABS: Alanine Aminotransferase 20 U/L (7-40); Albumin 4.5 g/dL (3.2-4.8); Alkaline Phosphatase 55 U/L (46-116); Anion Gap 7 (5-15); BUN/Creatinine Ratio 14.3 (10.0-20.0); Blood Urea Nitrogen 12 mg/dL (9-23); Calcium 10.2 mg/dL (8.7-10.4); Carbon Dioxide 29 mmol/L (20-31); Chloride 105 mmol/L (98-107); HDL Cholesterol 42 mg/dL (40-59); Potassium 4.3 mmol/L (3.5-5.1); Sodium 141 mmol/L (136-145); Total Protein 6.9 g/dL (5.7-8.2); Triglycerides 120 mg/dL (< 150)
[2025-06-04 13:17] LABS: Bilirubin, Total 0.5 mg/dL (0.2-1.0)
[2025-06-04 13:20] LABS: Cholesterol 214 mg/dL (< 200); Glucose 141 mg/dL (74-106)
[2025-06-04 15:21] LABS: Urine Protein, UAD Negative (Negative)
== END 2025-06-04 17:00 | disposition home or self-care (01) ==
LOC: LAB 12:24
PROVIDERS: ATTEND Internal Medicine
DX: I10 Essential (primary) hypertension (principal); E11.29 Type 2 diabetes mellitus with other diabetic kidney complication; E78.5 Hyperlipidemia, unspecified; R06.02 Shortness of breath
CPT/HCPCS: 36415; 80053; 80061; 81001; 83036; 85025